=== PATIENT | male | born 1945 | race Caucasian/White ===

== ENCOUNTER 2019-09-13 13:00 | Outpatient (CLI) | payer MEDICARE, SELFPAY ==
--- NOTE | 2019-09-13 13:22 | CT_ITS ---
WS: [id number] CT ABDOMEN PELVIS TECHNIQUE: Contrast-enhanced CT of the abdomen and pelvis with coronal and sagittal reformatted image s. CLINICAL INFORMATION: COMPLEX RENAL CYST COMPARISON: Ultrasound renal 12 9,019 DLP: 1253.[address] scans at [facility] use at least one of these dose optimization techniques: automat ed exposure control; mA and/or kV adjustment per patient size (includes targeted exams where dose is matched to clinical indication); or iterative reconstruction. FINDINGS: Normal bilateral renal parenchymal enhancement. Left renal cyst is unchanged since the recent renal u ltrasound. No enhancing nodularity. Left upper pole renal cyst measures 3.3 x 3.1 CM. Exophytic lower pole right renal cyst measuring 2.1 x 2.0 cm. Smaller bilateral renal cysts. Bilateral renal cortica l atrophy. Mild diffuse fatty infiltration of the liver. Small right hepatic cyst measuring 6 mm. Lung bases are well aerated. Portal vein and splenic vein are patent. Normal gallbladder. Normal GE junction. Right Adrenal gland is normal. Small left adrenal adenoma measuring 11 mm. Vascular calcification. Normal caliber abdominal aorta. No periaortic lymphadenopathy. Left FADIA. No inguinal lymphadenopathy. CT/CT abdomen pelvis w con* [id number] IMPRESSION: 1. Unchanged upper pole left renal cyst measuring 3.1 x 3.3 cm. No abnormal en hancement. 2. Exophytic right lower pole renal cyst measuring 2.0 x 2.1 CM. 3. Smaller bilateral renal cysts with bilateral renal cortical atrophy. No hyd ronephrosis. 4. Small left adrenal adenoma measuring 11 mm. 5. Left FADIA.
[2019-09-13] MEDS: iohexol 300 mg/mL 100 mL Btl IV (14:05)
== END 2019-09-13 13:01 | disposition home or self-care (01) ==
LOC: RADWPI 13:11
PROVIDERS: Family Provider Nurse Practitioner; PCP Internal Medicine; Visit Provider Internal Medicine
DX: N28.1 Cyst of kidney, acquired (principal); N26.1 Atrophy of kidney (terminal); D35.02 Benign neoplasm of left adrenal gland; Z96.642 Presence of left artificial hip joint
CPT/HCPCS: 74177; Q9967

== ENCOUNTER → 2019-09-19 10:55 | Outpatient (BNVA) | payer MEDICARE, SELFPAY | PROVIDERS: Family Provider Internal Medicine; PCP Internal Medicine; Visit Provider Specialist | DX: Z48.89 Encounter for other specified surgical aftercare (principal); Z96.642 Presence of left artificial hip joint | CPT/HCPCS: 73502 ==

== ENCOUNTER → 2019-11-18 09:13 | Outpatient (BNVA) | payer MEDICARE, SELFPAY | PROVIDERS: Family Provider Nurse Practitioner; PCP Internal Medicine; Visit Provider Specialist | DX: Z48.89 Encounter for other specified surgical aftercare (principal); Z96.642 Presence of left artificial hip joint | CPT/HCPCS: 73502 ==

== ENCOUNTER → 2020-06-01 08:18 | Outpatient (BNVA) | payer MEDICARE, SELFPAY | PROVIDERS: Family Provider Nurse Practitioner; PCP Internal Medicine; Visit Provider Specialist | DX: Z98.890 Other specified postprocedural states (principal) | CPT/HCPCS: 73502 ==

== ENCOUNTER 2020-08-24 08:01 | Outpatient (CLI) | payer MEDICARE, SELFPAY ==
--- NOTE | 2020-08-24 08:55 | ECG_ITS ---
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 Measurements Intervals [place] Rate: 65 P: -26 ND: 184 QRS: -74 QRSD: 159 T: 2 QT: 427 QTc: 446 Interpretive Statements SINUS RHYTHM RIGHT BUNDLE BRANCH BLOCK [120+ ms QRS DURATION, UPRIGHT V1, 40+ ms S IN I/aVL/V4/V5/V6] LEFT ANTERIOR FASCICULAR BLOCK [QRS AXIS <= -45, QR IN I, RS IN II] Compared to ECG 07/26/2019 22:08:26 Left anterior fascicular block now present Right-axis deviation no longer present Electronically Signed On 08-24-2020 19:08:48 CLIENT SERVICES ASSISTANT by Mp Pickard M.D. [id number]
[2020-08-24 09:57] LABS: Basophils % 0.3 %; Eosinophils # 0.5 10^3/uL (0.0-0.8); Eosinophils % 5.1 %; Hematocrit 40.4 % (42.0-52.0); Hemoglobin 13.2 g/dL (11.7-16.6); Lymphocytes # 2.3 10^3/uL (0.8-4.8); Lymphocytes % 25.4 %; Mean Corpuscular HGB Conc 32.7 g/dL (30.0-36.0); Mean Corpuscular Hemoglobin 31.3 pg (28.0-34.0); Mean Corpuscular Volume 95.7 fL (80-94); Mean Platelet Volume 10.4 fL (7.4-10.4); Monocytes # 0.9 10^3/uL (0.2-0.9); Monocytes % 9.4 %; Neutrophils # 5.34 10^3/uL (1.8-7.7); Neutrophils % 59.5 %; Nucleated Red Blood Cells % 0 %; Platelet Count 172 10^3/cmm (130-400); Red Blood Count 4.22 10^6/uL (4.1-5.3); Red Cell Distribution Width 13.2 % (12.1-15.1)
[2020-08-24 10:11] LABS: Anion Gap 16.5 (5-19); Blood Urea Nitrogen 21 mg/dL (8-23); Calcium 8.6 mg/dL (8.5-10.5); Carbon Dioxide 29 mmol/L (22-29); Chloride 104 mmol/L (98-107); Glucose 82 mg/dL (65-115); Osmolality Calculated 304 mOsm/kg (285-295); Potassium 3.5 mmol/L (3.5-5.1); Sodium 146 mmol/L (136-145)
== END 2020-08-24 08:02 | disposition home or self-care (01) ==
PROVIDERS: PCP Internal Medicine; Visit Provider Specialist
DX: Z01.810 Encounter for preprocedural cardiovascular examination (principal)
CPT/HCPCS: 36415; 80048; 85025; 93005

== ENCOUNTER → 2021-01-01 08:41 | Outpatient (BNVA) | payer MEDICARE, SELFPAY | PROVIDERS: PCP Internal Medicine; Visit Provider Surgery | DX: Z20.822 Contact with and (suspected) exposure to COVID-19 (principal) | CPT/HCPCS: 87635 ==

== ENCOUNTER 2021-01-07 08:07 | Day surgery (SDC) | payer MEDICARE, SELFPAY ==
[2021-01-05 14:02] VITALS: BMI 30.5
--- NOTE | 2021-01-07 08:39 | PC.NURSE ---
\pt left dentures at home
[2021-01-07 08:46] VITALS: BP 137/76; PULSE 65; RESP 18; TEMP 36.3; O2SAT 98
[2021-01-07 08:51] LABS: Glucose Point of Care 111 mg/dL (70-110)
--- NOTE | 2021-01-07 08:51 | ANES.PREANE2 ---
Pre-Anesthetic Assessment Pre-Anesthetic Assessment: Height/Weight: Height 1.83 m Weight 102.058 kg Preop Diagnosis: screening colonoscopy Proposed Procedure: Operation Date: 01/07/21 09:30 Proposed Procedures p Colonoscopy 79197 k52.9(Not Applicable) - Michael Anne MD Familial anesthetic complications: none Was Beta Devika taken within 24 hours: Yes Was Clonidine taken within 24 hours: N/A Social: Social History: Alcohol (occasional times a week) and No tobacco Exam: Pre-Anes Outpt Exam: alert, oriented x 3, clear to auscultation bilaterally and regular rate & rhythm Airway: Submandibular: WNL Cervical ROM: WNL MP: 1 Dentition: Chipped, False and Full Pulmonary: Pulmonary: None reported CV/HEM: CV/HEM: HTN : : None reported Comments: history of frequent kidney stones Hepatic: Hepatic: None reported GI: GI: None reported Metabolic: Metabolic: DM (type II) and Hyperlipidemia Musc/skel: Musc/skel: None reported Neuropsych: Neuropsych: None reported Anesthetic Plan: ASA status: 2 PFSH Anesthesia PFSH: Medical History Accelerated essential hypertension Diabetes mellitus Gout Hyperlipidemia Nephrolithiasis Surgical History History of arthroscopy of left knee History of circumcision History of hemiarthroplasty of left hip Hx of tonsillectomy Family History Other Diabetes Heart disease Social History Smoking and tobacco status: never smoked Alcohol intake: current Alcohol intake frequency: holidays/special occasions only Current occupational status: retired Data Anesthesia Cardiac Studies: No Data to Display
[2021-01-07] MEDS: sodium chloride 0.9% 1,000 ML 30 ML IV (08:53)
--- NOTE | 2021-01-07 09:42 | P.HP_ITS ---
Same Day Surgery H&P Indication for Procedure/HPI DATE OF PROCEDURE: January 07, 2021 CHIEF COMPLAINT/INDICATIONFOR SURGICAL PROCEDURE: fobt, diarrhea PREOP DIAGNOSIS: screening colonoscopy PLANNED PROCEDRUE: Operation Date: 01/07/21 09:30 Proposed Procedures p Colonoscopy 50930 k52.9(Not Applicable) - Michael Anne MD Medications/Allergies* Home Medications Medication Instructions Recorded Confirmed Type amlodipine 5 mg tablet 5 mg PO QDAY 09/19/19 01/05/21 History aspirin 81 mg tablet,delayed 81 mg PO QDAY 09/19/19 01/07/21 History release atorvastatin 10 mg tablet 10 mg PO QDAY 09/19/19 01/07/21 History calcium carbonate 600 mg calcium 600 mg PO QDAY 09/19/19 01/05/21 History (1,500 mg) tablet citalopram 20 mg tablet 20 mg PO QDAY 09/19/19 01/05/21 History hydrochlorothiazide 25 mg tablet 25 mg PO QAM 09/19/19 01/05/21 History insulin glargine [Lantus Solostar 50 unit SUBCUT DAILY 09/19/19 01/07/21 History U-100 Insulin] insulin lispro [Humalog KwikPen 1 unit SUBCUT DAILY 09/19/19 01/05/21 History Insulin] losartan 25 mg tablet 25 mg PO QDAY 09/19/19 01/05/21 History multivitamin 1 tab PO QAM 09/19/19 01/05/21 History potassium gluconate 2.5 mEq tablet 2.5 meq PO QDAY 09/19/19 01/05/21 History metoprolol tartrate 75 mg tablet 50 mg PO BID tab 09/08/20 01/05/21 History tamsulosin 0.4 mg capsule 0.8 mg PO QDAY cap 09/08/20 01/05/21 History allopurinol 300 mg tablet 300 mg PO QDAY tab 12/07/20 01/07/21 History cholecalciferol (vitamin D3) 25 3,000 unit PO QDAY tab 12/07/20 01/05/21 History mcg (1,000 unit) tablet gabapentin 100 mg capsule 200 mg PO TID cap 12/07/20 01/05/21 History metformin 1,000 mg tablet 1,000 mg PO BID tab 12/07/20 01/05/21 History Allergies/Adverse Reactions Allergy/AdvReac Type Severity Reaction Status Date / Time lisinopril Allergy unknown Verified 12/07/20 13:25 naproxen AdvReac short term Verified 12/07/20 13:25 memory loss Current Medications: Generic Name Dose Route Start Last Admin Trade Name Stefanie PRN Reason Stop Dose Admin Sodium Chloride 1,000 mls @ 30 mls/hr 01/07/21 08:30 01/07/21 08:53 Sodium Chloride 0.9% IV 01/08/21 08:29 30 mls/hr .Q24H MARYANN Administration Pertinent History/Comorbid Conditions* Medical History (Updated 12/07/20 @ 13:38 by Michael Anne MD) Accelerated essential hypertension Diabetes mellitus Gout Hyperlipidemia Nephrolithiasis Surgical History (Updated 12/07/20 @ 13:37 by Michael Anne MD) History of arthroscopy of left knee History of circumcision History of hemiarthroplasty of left hip Hx of tonsillectomy Family History (Updated 09/19/19 @ 11:32 by Zahraa Rodríguez LPN) Diabetes Heart disease Social History Smoking and tobacco status: never smoked Alcohol intake: current Alcohol intake frequency: holidays/special occasions only Current occupational status: retired Pertinent Exam Findings alert, oriented x 3 and regular rate & rhythm Recommendations Surgery/Procedure today Coding Level of Care Code Acute Maintenance Mechanic for Modesta Zhou
[2021-01-07 10:34] VITALS: BP 121/73; PULSE 52; RESP 18; TEMP 36.8; O2SAT 95
--- NOTE | 2021-01-07 10:35 | ANE.PACU2 ---
Inpatient post-anesthesia follow up: Airway intact: Yes Vital signs: Temperature 97.3 F Pulse Rate 65 Respiratory Rate 18 Blood Pressure 137/76 Pulse Oximetry 98 Oxygen Delivery Me thod Room Air Oxygen Flow Rate Fraction of Inspir ed Oxygen Hydration adequate: Yes Nausea and vomiting: No Pain level: 1 Mental status: Baseline
[2021-01-07 10:40] VITALS: BP 123/64; PULSE 54; RESP 18; O2SAT 95
== END 2021-01-07 10:55 | disposition home or self-care (01) ==
PROVIDERS: PCP Internal Medicine; Visit Provider Surgery
PROC: 0DJD8ZZ Inspection of Lower Intestinal Tract, Via Natural or Artificial Opening Endoscopic (ICD-10-PCS; CPT 45378; principal; 2021-01-07 09:30)
DX: R19.7 Diarrhea, unspecified (principal); I10 Essential (primary) hypertension; E11.9 Type 2 diabetes mellitus without complications; Z79.84 Long term (current) use of oral hypoglycemic drugs; E78.5 Hyperlipidemia, unspecified; D12.0 Benign neoplasm of cecum; D12.4 Benign neoplasm of descending colon; D12.3 Benign neoplasm of transverse colon; D12.8 Benign neoplasm of rectum
CPT/HCPCS: 36416; 45385; 82274; 82962; 83630; 87493; 87506; 88305; 96360; 96361; J2704; J7030

== ENCOUNTER → 2021-11-22 12:22 | Outpatient (BNVA) | payer MEDICARE, SELFPAY | PROVIDERS: PCP Internal Medicine; Visit Provider Internal Medicine Cardiovascular Disease | DX: I45.2 Bifascicular block (principal); I10 Essential (primary) hypertension; E11.9 Type 2 diabetes mellitus without complications | CPT/HCPCS: 99212 ==

== ENCOUNTER → 2022-03-08 07:58 | Outpatient (BNVA) | payer MEDICARE, SELFPAY | PROVIDERS: PCP Internal Medicine; Visit Provider Podiatrist Foot & Ankle Surgery | DX: E11.8 Type 2 diabetes mellitus with unspecified complications (principal); M21.41 Flat foot [pes planus] (acquired), right foot; M21.42 Flat foot [pes planus] (acquired), left foot; M21.6X1 Other acquired deformities of right foot; M21.6X2 Other acquired deformities of left foot; E11.42 Type 2 diabetes mellitus with diabetic polyneuropathy; I73.9 Peripheral vascular disease, unspecified; L84 Corns and callosities; L60.2 Onychogryphosis | CPT/HCPCS: 11055; 11721 ==

== ENCOUNTER 2022-05-31 10:43 | Outpatient (CLI) | payer MEDICARE, SELFPAY ==
--- NOTE | 2022-05-31 13:18 | XRR_ITS ---
PROCEDURE INFORMATION: Exam: XR Chest Exam date and time: 05/31/2022 1:19 PM Age: 76 years old Clinical indication: Shortness of breath; Prior surgery; Surgery type: Lt hip TECHNIQUE: Imaging protocol: Radiologic exam of the chest. Views: 2 views. COMPARISON: CR XR chest 1V [id number] 07/28/2019 12:59 AM FINDINGS: Lungs: No pneumonia or pulmonary edema. Pleural spaces: No pleural effusion or pneumothorax. Heart/Mediastinum: The cardiac silhouette is not enlarged. The mediastinal contours are normal. Bones/joints: There are multilevel bridging osteophytes in the spine. XR/XR chest 2V* [id number] IMPRESSION: No acute finding.
--- NOTE | 2022-05-31 14:00 | PFTS_ITS ---
Date of Study:06/01/22 Date of Dictation: MECHANICS: Forced vital capacity (FVC) is reduced. Forced expiratory volume in one second (FEV1) is normal. FEV1/FVC is normal. FLOW VOLUME LOOP: Normal. INTERPRETATION: The postbronchodilator spirometry is consistent with mild restriction. No significant postbronchodilator response. MTDD
--- NOTE | 2022-05-31 14:33 | PFTS_ITS ---
Date of Study:05/31/22 Date of Dictation: MECHANICS: Forced vital capacity (FVC) is . Forced expiratory volume in one second (FEV1) is . FEV1/FVC is . FLOW VOLUME LOOP: . LUNG VOLUMES: Total lung capacity (TLC) is . Residual volume (RV) is . DIFFUSING CAPACITY FOR CARBON MONOXIDE: . INTERPRETATION: The pulmonary function tests are . mechanics and lung volumes. Gas exchange (DLCO) is . MTDD
== END 2022-05-31 10:44 | disposition home or self-care (01) ==
PROVIDERS: PCP Internal Medicine; Visit Provider Internal Medicine
DX: R06.02 Shortness of breath (principal)
CPT/HCPCS: 71046; 94060; J7611

== ENCOUNTER → 2022-06-07 07:59 | Outpatient (BNVA) | payer MEDICARE, SELFPAY | PROVIDERS: PCP Internal Medicine; Visit Provider Podiatrist Foot & Ankle Surgery | DX: E11.8 Type 2 diabetes mellitus with unspecified complications (principal); M21.41 Flat foot [pes planus] (acquired), right foot; M21.42 Flat foot [pes planus] (acquired), left foot; M21.6X1 Other acquired deformities of right foot; E11.42 Type 2 diabetes mellitus with diabetic polyneuropathy; M21.6X2 Other acquired deformities of left foot; I73.9 Peripheral vascular disease, unspecified; L84 Corns and callosities; E11.621 Type 2 diabetes mellitus with foot ulcer; E11.622 Type 2 diabetes mellitus with other skin ulcer; Z79.4 Long term (current) use of insulin; Z79.84 Long term (current) use of oral hypoglycemic drugs; L97.511 Non-pressure chronic ulcer of other part of right foot limited to breakdown of skin; L97.321 Non-pressure chronic ulcer of left ankle limited to breakdown of skin | CPT/HCPCS: 11055; 11721; 99213 ==

== ENCOUNTER → 2022-06-09 13:16 | Outpatient (BNVA) | payer MEDICARE, SELFPAY | PROVIDERS: PCP Internal Medicine; Visit Provider Urology | DX: N40.0 Benign prostatic hyperplasia without lower urinary tract symptoms (principal); R97.20 Elevated prostate specific antigen [PSA] | CPT/HCPCS: 36415; 51798; 84153; 99203 ==

== ENCOUNTER → 2022-09-29 07:58 | Outpatient (BNVA) | payer MEDICARE, SELFPAY | PROVIDERS: PCP Internal Medicine; Visit Provider Podiatrist Foot & Ankle Surgery | DX: E11.8 Type 2 diabetes mellitus with unspecified complications (principal); M21.41 Flat foot [pes planus] (acquired), right foot; M21.42 Flat foot [pes planus] (acquired), left foot; M21.6X1 Other acquired deformities of right foot; M21.6X2 Other acquired deformities of left foot; E11.42 Type 2 diabetes mellitus with diabetic polyneuropathy; I73.9 Peripheral vascular disease, unspecified; L84 Corns and callosities; Z79.84 Long term (current) use of oral hypoglycemic drugs; Z79.4 Long term (current) use of insulin; L60.2 Onychogryphosis | CPT/HCPCS: 11055; 11721 ==

== ENCOUNTER → 2022-11-21 12:05 | Outpatient (BNVA) | payer MEDICARE, SELFPAY | PROVIDERS: PCP Internal Medicine; Visit Provider Internal Medicine | DX: I10 Essential (primary) hypertension (principal); E11.9 Type 2 diabetes mellitus without complications; I45.2 Bifascicular block; Z79.84 Long term (current) use of oral hypoglycemic drugs; Z79.4 Long term (current) use of insulin | CPT/HCPCS: 99214 ==

== ENCOUNTER → 2022-12-13 07:57 | Outpatient (BNVA) | payer MEDICARE, SELFPAY | PROVIDERS: PCP Internal Medicine; Visit Provider Urology | DX: N40.0 Benign prostatic hyperplasia without lower urinary tract symptoms (principal) | CPT/HCPCS: 51741; 51798; 52000; 81003; 99213 ==

== ENCOUNTER 2022-12-15 08:31 | Outpatient (CLI) | payer MEDICARE, SELFPAY ==
--- NOTE | 2022-12-15 09:30 | USCV_ITS ---
Dk Steven Age: 77 Gender: M : 1945 Exam Date: 12/15/2022 09:11 Ordering Phys: Mp Pickard M.D ([email or web address]) Technologist: Fabrizio Pennington Exam Location: [facility] – [place] Indication: shortness of breath BP: 131 / 65 HR: 50 Rhythm: Sinus Technical Quality: Adequate MEASUREMENTS (Male / Female) Normal Values 2D ECHO LVOT Diameter 2.0 cm LV Ejection Fraction MOD 2C 49.2 % LV Ejection Fraction 2C AL 52.2 % LA Diameter 3.5 cm LA Width 3.6 cm LA Height 3.2 cm RA Width 3.0 cm RA Height 3.5 cm Aorta at Sinotubular Diameter 2.4 cm IVC Diameter 2.0 cm M-MODE Aortic Annulus Diameter 3.2 cm LA Ao Ratio MM 1.2 MV E Point Septal Separation 0.6 cm DOPPLER AV Peak Velocity 132.3 cm/s LVOT Peak Velocity 75.0 cm/s AV Area Cont Eq vti 1.5 cm squared AV Area Cont Eq pk 1.8 cm squared MV Peak Velocity 90.0 cm/s MV Area PHT 3.4 cm squared Mitral E to A Ratio 0.7 MV E' Velocity 28.5 cm/s Mitral E to MV E' Ratio 7.1 Mitral E to LV E' Lateral Ratio 5.9 Mitral E to LV E' Septal Ratio 9.0 TR Peak Velocity 285.8 cm/s TR Peak Gradient 32.7 mmHg TR Mean Velocity 225.7 cm/s TR Mean Gradient 23.6 mmHg TR Velocity Time Integral 91.4 cm Right Atrial Pressure 3.0 mmHg Pulmonary Artery Systolic Pressu 35.7 mmHg PV Peak Velocity 82.7 cm/s RV Acceleration Time 0.2 s RV Ejection Time 0.4 s RV AcT/ET 0.4 FINDINGS Left Ventricle Left ventricle is normal in size. LV systolic function is normal with EF of 50 to 55%. No regional wall motion abnormalities are seen. Grade 1 diastolic dysfunction Right Ventricle The right ventricle is normal in size and function. Right Atrium The right atrium is normal in size. Left Atrium The left atrium is normal in size. Mitral Valve Structurally normal mitral valve. There is mild mitral regurgitation. Aortic Valve Aortic valve is thickened. No significant stenosis. Trace aortic regurgitation. Tricuspid Valve Mild tricuspid regurgitation. Pulmonary artery systolic pressure is normal. Pulmonic Valve Not well-visualized. Mild pulmonic regurgitation. Pericardium Normal pericardium without effusion. Aorta Normal ascending aorta dimension. IVC The inferior vena cava appears normal. CONCLUSIONS LV systolic function is normal with EF 50 to 55%. Grade 1 diastolic dysfunction Mild mitral regurgitation Trace aortic regurgitation Mild tricuspid regurgitation Mild pulmonic regurgitation. No comparison studies are available Mp Pickard MD (Electronically Signed) Final Date: 15 December 2022 11:45 S
== END 2022-12-15 08:32 | disposition home or self-care (01) ==
LOC: RAD 08:33
PROVIDERS: PCP Internal Medicine; Visit Provider Internal Medicine
DX: R06.02 Shortness of breath (principal); I34.0 Nonrheumatic mitral (valve) insufficiency; I07.1 Rheumatic tricuspid insufficiency; I37.1 Nonrheumatic pulmonary valve insufficiency
CPT/HCPCS: 11055; 11721; 93306

== ENCOUNTER → 2023-02-15 10:09 | Outpatient (BNVA) | payer MEDICARE, SELFPAY | PROVIDERS: PCP Internal Medicine; Visit Provider Podiatrist Foot & Ankle Surgery | DX: I73.9 Peripheral vascular disease, unspecified (principal); L60.3 Nail dystrophy; L84 Corns and callosities; M72.2 Plantar fascial fibromatosis; E11.8 Type 2 diabetes mellitus with unspecified complications; M21.41 Flat foot [pes planus] (acquired), right foot; M21.42 Flat foot [pes planus] (acquired), left foot; M21.6X1 Other acquired deformities of right foot; M21.6X2 Other acquired deformities of left foot; E11.42 Type 2 diabetes mellitus with diabetic polyneuropathy; Z79.4 Long term (current) use of insulin; Z79.84 Long term (current) use of oral hypoglycemic drugs | CPT/HCPCS: 11055; 11721; 73630; 99214 ==

== ENCOUNTER 2023-02-20 06:00 | Outpatient (RCR) | payer MEDICARE, SELFPAY | END 2023-03-20 23:59 | disposition home or self-care (01) | LOC: APT 06:00 | PROVIDERS: Visit Provider Podiatrist Foot & Ankle Surgery | DX: M72.2 Plantar fascial fibromatosis (principal) | CPT/HCPCS: 97035; 97110; 97140; 97162; 97530 ==

== ENCOUNTER → 2023-03-16 08:40 | Outpatient (BNVA) | payer MEDICARE, SELFPAY | PROVIDERS: PCP Internal Medicine; Referring Provider Internal Medicine; Visit Provider Nurse Practitioner Family | DX: L57.0 Actinic keratosis (principal); L82.1 Other seborrheic keratosis; L82.0 Inflamed seborrheic keratosis; L81.4 Other melanin hyperpigmentation; L57.8 Other skin changes due to chronic exposure to nonionizing radiation; Z85.820 Personal history of malignant melanoma of skin; Z85.828 Personal history of other malignant neoplasm of skin | CPT/HCPCS: 17000; 17110; 99203 ==

== ENCOUNTER 2023-03-21 06:00 | Outpatient (RCR) | payer MEDICARE, SELFPAY | END 2023-04-20 23:59 | disposition home or self-care (01) | LOC: APT 06:00 | PROVIDERS: PCP Internal Medicine; Visit Provider Podiatrist Foot & Ankle Surgery | DX: M72.2 Plantar fascial fibromatosis (principal) | CPT/HCPCS: 97110; 97140; 97530 ==

== ENCOUNTER 2023-04-19 15:19 | Outpatient (CLI) | payer MEDICARE, SELFPAY | END 2023-04-19 15:20 | disposition home or self-care (01) | LOC: SPT 15:20 | PROVIDERS: PCP Internal Medicine; Visit Provider Podiatrist Foot & Ankle Surgery | DX: Z46.89 Encounter for fitting and adjustment of other specified devices (principal); M72.2 Plantar fascial fibromatosis; E11.42 Type 2 diabetes mellitus with diabetic polyneuropathy; L84 Corns and callosities; I73.9 Peripheral vascular disease, unspecified; L60.3 Nail dystrophy; Q66.71 Congenital pes cavus, right foot; Q66.72 Congenital pes cavus, left foot; M76.61 Achilles tendinitis, right leg; Z79.84 Long term (current) use of oral hypoglycemic drugs; Z79.4 Long term (current) use of insulin | CPT/HCPCS: 11055; 11721; 97760; 99214; L4397 ==

== ENCOUNTER → 2023-06-21 09:15 | Outpatient (BNVA) | payer MEDICARE, SELFPAY | PROVIDERS: PCP Internal Medicine; Visit Provider Podiatrist Foot & Ankle Surgery | DX: M76.61 Achilles tendinitis, right leg (principal); E11.42 Type 2 diabetes mellitus with diabetic polyneuropathy; I73.9 Peripheral vascular disease, unspecified; L84 Corns and callosities; L60.3 Nail dystrophy; Z79.84 Long term (current) use of oral hypoglycemic drugs; Z79.4 Long term (current) use of insulin | CPT/HCPCS: 11055; 11721; 99213 ==

== ENCOUNTER 2023-07-03 11:37 | Emergency (ER) | payer MEDICARE, SELFPAY ==
[2023-07-03] VITALS (34 sets, daily range): BP systolic 98–144; BP diastolic 49–76; PULSE 55–73; RESP 11–25; TEMP 36.5; O2SAT 93–97; BMI 29.8
--- NOTE | 2023-07-03 11:42 | ECG_ITS ---
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 Measurements Intervals [place] Rate: 53 P: 53 PA: 188 QRS: 270 QRSD: 173 T: 46 QT: 489 QTc: 461 Interpretive Statements SINUS BRADYCARDIA RIGHT AXIS DEVIATION [QRS AXIS > 100] RIGHT BUNDLE BRANCH BLOCK [120+ ms QRS DURATION, UPRIGHT V1, 40+ ms S IN I/aVL/V4/V5/V6] Compared to ECG 08/24/2020 08:32:43 Right-axis deviation now present Sinus rhythm no longer present Left anterior fascicular block no longer present Electronically Signed On 07-03-2023 18:32:50 HEALTH INFORMATION SYSTEMS TECHNICIAN by Tamela Cancino M.D. [id number]
--- NOTE | 2023-07-03 11:45 | W.ED.SYNCOPE ---
HPI - Syncope General: Chief Complaint: Syncope Stated Complaint: Syncope Time Seen by Provider: 07/03/23 11:39 Source: patient Mode of arrival: EMS Limitations: no limitations History of Present Illness: Patient is a very nice 77-year-old male who presents to ED today for evaluation following a syncopal episode. Patient states he had just received eye injections by Dr. Diaz and states he was standing at the counter waiting on his next appointment to be scheduled when the next thing I knew I was being woken up on the floor . Patient states he does not recall if he ever became dizzy or lightheaded or had chest pain, shortness of breath, difficulty breathing, or palpitations. He denies any injuries when he fell stating nothing currently is hurting him at the moment. Patient upon arrival to the emergency department states he feels back to baseline. Looks like EMS did some orthostatics in route that were positive. Patient states sometimes he will get dizzy with positional changes. MD complaint: loss of consciousness Onset (ago): hour(s) -: minutes(s) Prodromal symptoms: other (unrecalled by patient) Witnessed: Yes - by Bystander Injuries sustained associated with event: none Associated symptoms: Deny abdominal pain, chest pain, fever(s), headache(s), lightheadedness, nausea or vertigo Treatments prior to arrival: IV fluids Review of Systems Const: Denies: fever(s) or chills Eyes: Denies: change in vision or blurry vision Card: Reports: syncope; Denies: chest pain, palpitations, irregular heart rhythm, edema, swelling of feet/ankles, lightheadedness, pre-syncope, dyspnea on exertion, orthopnea, leg pain with exertion or acrocyanosis Resp: Denies: dyspnea, productive cough, pain on inspiration, hemoptysis or chest congestion GI: Denies: abdominal pain, nausea, vomiting, heartburn or diarrhea : Denies: flank pain, difficulty urinating or dysuria Musc: Denies: neck pain, back pain, extremity pain, extremity swelling or joint pain Skin/Breast: Denies: rash Neuro: Denies: headache(s), numbness in extremities, weakness in extremities, sensory changes, lack of coordination, difficulty walking, frequent falls, dizziness, vertigo, confusion, behavioral changes, Slurred speech present, difficulty communicating thoughts or seizure-like activity PFSH ED PFSH: Medical History Accelerated essential hypertension Diabetes mellitus Gout Hyperlipidemia Nephrolithiasis Surgical History History of arthroscopy of left knee History of circumcision History of hemiarthroplasty of left hip Hx of tonsillectomy Status post colonoscopy (01/07/21) Cecal, transverse colon, descending colon , rectal polyp Family History Father , AT AGE 54 Renal failure Mother , AT AGE 92 Dementia Alzheimer disease Other Diabetes Heart disease Social History Smoking and tobacco/nicotine status: never used tobacco/nicotine Alcohol intake: current Alcohol intake frequency: holidays/special occasions only Alcohol type: beer and wine Substance/Drug Use: never Marital status: Current occupational status: retired Physical Exam Const: COMMON NORMALS: no acute distress, patient oriented x3, no limitations, healthy appearing, alert and well nourished GENERAL APPEARANCE: cooperative ORIENTATION/CONSCIOUSNESS: Yes awake, Yes oriented to person, Yes oriented to place and Yes oriented to time HENMT: COMMON NORMALS: normocephalic and atraumatic HEAD & SCALP: normal to inspection, normocephalic and atraumatic FACE & SINUS: normal facial exam Eye: COMMON NORMALS: Equal, round and reactive pupils present and EOMs intact bilaterally GENERAL EYE: appearance normal, both eyes and all related structures and normal light reflex PUPIL: Yes Equal, round and reactive pupils present DIRECT OPHTHALMOSCOPY: Yes normal light reflex Neck/C-Spine: COMMON NORMALS: full ROM, no lymphadenopathy, supple, no meningeal signs, no JVD and No carotid bruits GENERAL: Yes normal visual inspection CERVICAL SPINE: Yes cervical ROM normal, No Cervical spine tenderness and No step off deformity Chest: COMMONS NORMALS: normal inspection of the chest Resp: COMMON NORMALS: normal respiratory effort and clear to auscultation bilaterally AUSCULTATION: clear to auscultation bilaterally Cardio: COMMON NORMALS: no JVD, regular rate and regular rhythm RATE: regular rate RHYTHM: regular rhythm GI: COMMON NORMALS: Normal to inspection, nondistended, normoactive bowel sounds present, Soft to palpation, non-tender, No hepatosplenomegaly present and no masses PALPATION: Yes Soft to palpation and Yes No hepatosplenomegaly present : COMMON NORMALS: Yes no CVA tenderness BLADDER/KIDNEY EXAM: Yes no CVA tenderness Back/Pelvis: COMMON NORMALS: no CVA tenderness, thoracic and lumbar spine normal to inspection, no thoracic nor lumbar tenderness and thoraco-lumbar ROM normal Extremity: COMMON NORMALS: normal to inspection and full ROM GENERAL: Yes normal exam except as noted Neuro: OANH COMA SCALE: document GCS findings Oanh coma scale eye opening: Spontaneous Oanh coma scale verbal response: Orientated [place] coma scale motor response: Obey commands [place] coma scale total score: 15 COMMON NORMALS: patient oriented x3, CN's II-XII intact bilaterally, moves all extremities, no focal motor deficits, no sensory deficits noted and gait normal SENSORIUM/ORIENTATION: Yes alert, Yes oriented to person, Yes oriented to place and Yes oriented to time MENINGEAL SIGNS: Yes no meningeal signs SPEECH: speech normal GAIT: Yes Normal gait present MOTOR EXAM: 5/5 motor strength present throughout Skin: COMMON NORMALS: no rashes or lesions noted GENERAL SKIN EXAM: no rashes or lesions noted Course Vital Signs: Vital signs: Vital Signs Temperature 97.7 F 07/03/23 11:38 Pulse Rate 58 L 07/03/23 14:45 Respiratory Rate 18 07/03/23 14:45 Blood Pressure 121/58 07/03/23 14:45 Pulse Oximetry 94 07/03/23 14:45 Oxygen Delivery Me thod Room Air 07/03/23 14:20 MDM - Syncope Medical Decision Making Patient is a nice 77-year-old male here following a syncopal episode. Etiology at this time most likely either related to a vasovagal episode possibly following injections to the eye or orthostatic hypotension. Possibly dehydration. His vitals here have been stable. Orthostatic blood pressures here were positive upon standing. This is probably more age related as he has mentioned he often gets dizzy with positional changes. Blood work showing mild hypokalemia-he was given oral supplements for this. BUN/Cr slightly elevated. He was given fluids here. Baseline trop of 23 with a negative delta. Baseline and repeat EKGs with no abnormal arrhythmias or ischemia. CXR normal. He has no chest pain/SOB. UA attempted to be collected multiple times but was not able to get sample. Patient will be allowed discharge with return precautions. Otherwise I would like him to follow up with his primary care provider this week. Differential Diagnosis Likely syncope due to orthostatic hypotension, vasovagal syncope and dehydration Lab Data 07/03/23 11:20 07/03/23 11:20 Laboratory Results WBC 12.74 10^3/uL (3.29-11.43) H 07/03/23 11:20 RBC 4.37 10^6/uL (3.85-5.65) 07/03/23 11:20 Hgb 13.80 g/dL (11.27-16.99) 07/03/23 11:20 Hct 41.3 % (37-53) 07/03/23 11:20 MCV 94.5 fl (82-101) 07/03/23 11:20 MCH 31.6 pg (27-33) 07/03/23 11:20 MCHC 33.4 g/dL (30-55) 07/03/23 11:20 RDW 13.2 % (12.1-15.1) 07/03/23 11:20 Plt Count 193 10^3/cmm (157-399) 07/03/23 11:20 MPV 11.2 fL (7.4-10.4) H 07/03/23 11:20 Neut % (Auto) 63.8 % 07/03/23 11:20 Lymph % (Auto) 23.6 % 07/03/23 11:20 Parmer % (Auto) 9.4 % 07/03/23 11:20 Eos % (Auto) 2.0 % 07/03/23 11:20 Baso % (Auto) 0.2 % 07/03/23 11:20 Neut # (Auto) 8.12 10^3/uL (1.8-7.7) H 07/03/23 11:20 Lymph # (Auto) 3.0 10^3/uL (0.8-4.8) 07/03/23 11:20 Parmer # (Auto) 1.2 10^3/uL (0.2-0.9) H 07/03/23 11:20 Eos # (Auto) 0.3 10^3/uL (0.0-0.8) 07/03/23 11:20 Baso # (Auto) 0.0 10^3/uL (0.0-0.1) 07/03/23 11:20 Nucleated RBC % (auto) 0 % 07/03/23 11:20 Nucleated RBCs # 0.0 /100WBC 07/03/23 11:20 Sodium 138 mmol/L (136-145) 07/03/23 11:20 Potassium 3.3 mmol/L (3.5-5.1) L 07/03/23 11:20 Chloride 100 mmol/L (98-107) 07/03/23 11:20 Carbon Dioxide 28 mmol/L (22-29) 07/03/23 11:20 Anion Gap 13.3 (5-19) 07/03/23 11:20 BUN 38 mg/dL (8-23) H 07/03/23 11:20 Creatinine 1.4 mg/dL (0.7-1.2) H 07/03/23 11:20 GFR Calculation Not Reportable 07/03/23 11:20 Glucose 160 mg/dL (65-115) H 07/03/23 11:20 Calculated Osmolality 298 mOsm/kg (285-295) H 07/03/23 11:20 Calcium 8.4 mg/dL (8.5-10.5) L 07/03/23 11:20 Total Bilirubin 0.3 mg/dL (0.15-1.2) 07/03/23 11:20 AST 21 U/L (0-40) 07/03/23 11:20 ALT 23 U/L (0-41) 07/03/23 11:20 Alkaline Phosphatase 72 U/L (40-130) 07/03/23 11:20 Troponin T Baseline 23 ng/L (0-15) H 07/03/23 11:20 Troponin T 120 Minute 22.70 ng/L (0-15) H 07/03/23 13:15 Delta Troponin T -0.30 ABS# (0-10) L 07/03/23 13:15 Total Protein 6.1 g/dL (6.6-8.7) L 07/03/23 11:20 Albumin 3.7 g/dL (3.5-5.2) 07/03/23 11:20 Globulin 2.4 g/dL (1.3-4.6) 07/03/23 11:20 All radiology interpretation(s) finalized by discharge Discharge Plan Discharge Patient Disposition: Home Clinical Impression: Syncope Qualifiers: Syncope type: unspecified Qualified Code(s): R55 - Syncope and collapse Condition: Stable Prescriptions: No Action atorvastatin 40 mg tablet 40 mg PO DAILY metformin 500 mg tablet extended release 24 hr 500 mg PO BID insulin lispro [Humalog U-100 Insulin] 100 unit/mL solution 1 - 15 unit SUBCUT BID Rx Instructions: Sliding scale potassium gluconate 2.5 mEq tablet 2.5 meq PO QDAY citalopram 20 mg tablet 20 mg PO QDAY amlodipine 5 mg tablet 5 mg PO QDAY hydrochlorothiazide 25 mg tablet 25 mg PO QAM aspirin [Adult Low Dose Aspirin] 81 mg tablet,delayed release (DR/EC) 81 mg PO QAM calcium carbonate 600 mg calcium (1,500 mg) tablet 600 mg PO QDAY multivitamin Tablet 1 tab PO QAM tamsulosin 0.4 mg capsule 0.8 mg PO QDAY allopurinol 300 mg tablet 300 mg PO QAM gabapentin 100 mg capsule 200 mg PO TID cholecalciferol (vitamin D3) [Vitamin D3] 25 mcg (1,000 unit) tablet 3,000 unit PO QDAY finasteride 5 mg tablet 5 mg PO QDAY Qty: 90 3RF (DME) physical therapy See Rx Instructions .Route .MEDSUPPLY Qty: 1 0RF Rx Instructions: Please schedule for Eval and Treat. Patient prefers the [place] location. (DME) Diabetic Shoes with 3 Accomodative Inserts See Rx Instructions .Route .MEDSUPPLY Qty: 1 0RF Rx Instructions: As directed (DME) Night Splint to the right See Rx Instructions .Route .MEDSUPPLY Qty: 1 0RF Rx Instructions: As directed cyclobenzaprine 10 mg tablet 10 mg PO BID PRN (Reason: muscle spasm) Qty: 14 0RF prednisone 20 mg tablet 20 mg PO BID Qty: 10 0RF losartan 50 mg tablet 50 mg PO DAILY metoprolol tartrate 50 mg tablet 50 mg PO BID Lantus Solostar U-100 Insulin 100 unit/mL (3 mL) Insulin Pen 55 unit SUBCUT DAILY Discharge Orders: Discharge ED (Routine); Ordered 07/03/23 Ordered By: Tana Saxena Referrals: Mili Soliman MD [Primary Care Provider] - Patient Instructions: Syncope (DC), Syncope in Older Adults (ED) Activity Restrictions/Additional Instructions: As we discussed I would like you to follow-up with your primary care provider later this week for re-evaluation. You need to return to the emergency department for any further episodes of syncope, lightheadedness, dizziness, chest pain, shortness of breath, difficulty breathing, palpitations, severe headache, or any other concerns you may have. As we discussed the etiology for your syncopal episode could be related to your blood pressure. Please start doing the rule of fives when it comes to positional changes such as going from a lying to seated or seated to standing position (i.e wait 5 mins when changing positions to allow blood pressure to equalize and keep you from getting dizzy). Coding Level of Care Code ED Flatwork Folder for Modesta Zhou
--- NOTE | 2023-07-03 11:52 | XR_ITS ---
WS: [id number] Exam: XR chest 1V portable [id number] Date/Time of Exam: 07/03/2023 12:01 PM Reason For Exam: syncope Comparison 05/31/2022. The lungs are clear. Normal cardiomediastinal silhouette. No pleural effusions. Bony structures are i ntact. IMPRESSION: 1. Negative chest. No change.
[2023-07-03 12:13] LABS: Basophils % 0.2 %; Eosinophils # 0.3 10^3/uL (0.0-0.8); Hematocrit 41.3 % (37-53); Lymphocytes % 23.6 %; Mean Corpuscular HGB Conc 33.4 g/dL (30-55); Mean Corpuscular Hemoglobin 31.6 pg (27-33); Mean Corpuscular Volume 94.5 fl (82-101); Mean Platelet Volume 11.2 fL (7.4-10.4); Monocytes # 1.2 10^3/uL (0.2-0.9); Monocytes % 9.4 %; Neutrophils # 8.12 10^3/uL (1.8-7.7); Neutrophils % 63.8 %; Nucleated Red Blood Cells % 0 %; Platelet Count 193 10^3/cmm (157-399); Red Blood Count 4.37 10^6/uL (3.85-5.65); Red Cell Distribution Width 13.2 % (12.1-15.1); White Blood Count 12.74 10^3/uL (3.29-11.43)
[2023-07-03 12:35] LABS: Troponin(5th) Baseline 23 ng/L (0-15)
[2023-07-03 12:37] LABS: Alanine Aminotransferase 23 U/L (0-41); Albumin Level 3.7 g/dL (3.5-5.2); Alkaline Phosphatase 72 U/L (40-130); Blood Urea Nitrogen 38 mg/dL (8-23); Calcium 8.4 mg/dL (8.5-10.5); Carbon Dioxide 28 mmol/L (22-29); Chloride 100 mmol/L (98-107); Globulin 2.4 g/dL (1.3-4.6); Glucose 160 mg/dL (65-115); Osmolality Calculated 298 mOsm/kg (285-295); Sodium 138 mmol/L (136-145); Total Bilirubin 0.3 mg/dL (0.15-1.2); Total Protein 6.1 g/dL (6.6-8.7)
[2023-07-03 12:43] LABS: Anion Gap 13.3 (5-19); Aspartate Amino Transferase 21 U/L (0-40); Potassium 3.3 mmol/L (3.5-5.1)
--- NOTE | 2023-07-03 13:52 | ECG_ITS ---
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 Measurements Intervals [place] Rate: 63 P: 52 [place]: 188 QRS: 265 QRSD: 167 T: 30 QT: 463 QTc: 474 Interpretive Statements SINUS RHYTHM RIGHT AXIS DEVIATION [QRS AXIS > 100] RIGHT BUNDLE BRANCH BLOCK [120+ ms QRS DURATION, UPRIGHT V1, 40+ ms S IN I/aVL/V4/V5/V6] Compared to ECG 07/03/2023 11:42:56 Sinus bradycardia no longer present Electronically Signed On 07-04-2023 1:52:12 CRATE BUILDER by Tamela Cancino M.D. [id number]
[2023-07-03] MEDS: potassium chloride ER 20 mEq Tablet 40 MEQ PO (13:56)
[2023-07-03] MEDS: sodium chloride 0.9% 1,000 ML 999 ML IV (13:57)
== END 2023-07-03 14:51 | disposition home or self-care (01) ==
PROVIDERS: Emergency Provider Physician Assistant; PCP Internal Medicine
DX: R55 Syncope and collapse (principal); Z79.4 Long term (current) use of insulin; Z79.84 Long term (current) use of oral hypoglycemic drugs; Z79.82 Long term (current) use of aspirin; E11.9 Type 2 diabetes mellitus without complications; E78.5 Hyperlipidemia, unspecified; I10 Essential (primary) hypertension
CPT/HCPCS: 36415; 71045; 80053; 84484; 85025; 93005; 96360; 99285; J7030

== ENCOUNTER 2023-07-19 08:28 | Outpatient (CLI) | payer MEDICARE, SELFPAY ==
--- NOTE | 2023-07-19 08:45 | MR_ITS ---
WS: [id number] MRI RIGHT ANKLE WITHOUT CONTRAST. COMPARISON: Radiographs RIGHT foot 02/15/2023 Multiplanar, multisequence imaging is performed without contrast. There is a moderate amount of edema throughout the pre-Achilles fat pad. There is a small amount of f luid in the posterior recess of the ankle joint. There is a mild prominent calcaneal tuberosity consi stent with Stella's deformity. The Achilles tendon appears normal. On a prior radiograph there is en thesopathy at the Achilles tendon. There may be slight increased T2 signal in the distal Achilles ins ertion site. There is no retrocalcaneal bursal fluid. There is no full-thickness tear. There is a small amount of fluid extending along the muscle of the flexor hallucis longus but not inv olving the tendon. No marrow edema in the calcaneus. No evidence for plantar fasciitis. IMPRESSION: 1. No Achilles tendon tear or significant tendinopathy. There is a very tiny amount of central increa sed T2 signal at the insertion site of the Achilles tendon. 2. Moderate edema pre-Achilles fat pad and pre-Achilles bursitis. 3. Mild Stella syndrome, very slight prominence of the calcaneal tuberosity.
== END 2023-07-19 08:29 | disposition home or self-care (01) ==
LOC: RAD 08:28
PROVIDERS: PCP Internal Medicine; Visit Provider Podiatrist Foot & Ankle Surgery
DX: M72.2 Plantar fascial fibromatosis (principal); M76.61 Achilles tendinitis, right leg; Q66.71 Congenital pes cavus, right foot; Q66.72 Congenital pes cavus, left foot; R60.0 Localized edema; M21.6X1 Other acquired deformities of right foot
CPT/HCPCS: 73721

== ENCOUNTER 2023-07-31 09:12 | Outpatient (CLI) | payer MEDICARE, SELFPAY ==
--- NOTE | 2023-07-31 09:21 | XR_ITS ---
WS: [id number] Exam: XR knee RT 4V [id number] Date/Time of Exam: 07/31/2023 9:31 AM Reason For Exam: PAIN IN R KNEE No acute fracture or dislocation. Joint compartments are preserved. No joint effusion. IMPRESSION: 1. Negative RIGHT knee.
== END 2023-07-31 09:13 | disposition home or self-care (01) ==
LOC: RAD 09:13
PROVIDERS: PCP Internal Medicine; Visit Provider Nurse Practitioner Family
DX: M25.561 Pain in right knee (principal)
CPT/HCPCS: 73564

== ENCOUNTER → 2023-08-09 08:42 | Outpatient (BNVA) | payer MEDICARE, SELFPAY | PROVIDERS: PCP Internal Medicine; Visit Provider Nurse Practitioner | DX: M17.11 Unilateral primary osteoarthritis, right knee; S83.411A Sprain of medial collateral ligament of right knee, initial encounter; W19.XXXA Unspecified fall, initial encounter; Z46.89 Encounter for fitting and adjustment of other specified devices; M25.561 Pain in right knee | CPT/HCPCS: 73560; 73565; 97760; 99204; L1812 ==

== ENCOUNTER 2023-08-09 11:04 | Outpatient (CLI) | payer MEDICARE, SELFPAY | END 2023-08-09 11:05 | disposition home or self-care (01) | LOC: SPT 11:04 | PROVIDERS: PCP Internal Medicine; Visit Provider Nurse Practitioner | DX: Z46.89 Encounter for fitting and adjustment of other specified devices (principal); M25.561 Pain in right knee | CPT/HCPCS: 97760; 99204; L1812 ==

== ENCOUNTER → 2023-09-06 08:50 | Outpatient (BNVA) | payer MEDICARE, SELFPAY | PROVIDERS: PCP Internal Medicine; Visit Provider Nurse Practitioner | DX: M17.11 Unilateral primary osteoarthritis, right knee; S83.411A Sprain of medial collateral ligament of right knee, initial encounter; X58.XXXA Exposure to other specified factors, initial encounter | CPT/HCPCS: 99213 ==

== ENCOUNTER → 2023-09-18 08:37 | Outpatient (BNVA) | payer MEDICARE, SELFPAY | PROVIDERS: PCP Internal Medicine; Visit Provider Nurse Practitioner Family | DX: Z85.820 Personal history of malignant melanoma of skin (principal); Z85.828 Personal history of other malignant neoplasm of skin; L82.1 Other seborrheic keratosis; D22.5 Melanocytic nevi of trunk; L81.4 Other melanin hyperpigmentation | CPT/HCPCS: 17000; 17110; 99213 ==

== ENCOUNTER → 2023-10-04 08:42 | Outpatient (BNVA) | payer MEDICARE, SELFPAY | PROVIDERS: PCP Internal Medicine; Visit Provider Podiatrist Foot & Ankle Surgery | DX: L60.3 Nail dystrophy (principal); M76.61 Achilles tendinitis, right leg; E11.42 Type 2 diabetes mellitus with diabetic polyneuropathy; I73.9 Peripheral vascular disease, unspecified; L84 Corns and callosities; Z79.4 Long term (current) use of insulin; Z79.84 Long term (current) use of oral hypoglycemic drugs | CPT/HCPCS: 11055; 11721; 99213 ==

== ENCOUNTER → 2023-10-16 09:32 | Outpatient (BNVA) | payer MEDICARE, SELFPAY | PROVIDERS: PCP Internal Medicine; Visit Provider Nurse Practitioner Family | DX: L82.1 Other seborrheic keratosis (principal); L81.4 Other melanin hyperpigmentation; L57.8 Other skin changes due to chronic exposure to nonionizing radiation; D22.5 Melanocytic nevi of trunk; L57.0 Actinic keratosis; D48.5 Neoplasm of uncertain behavior of skin; Z85.820 Personal history of malignant melanoma of skin; Z85.828 Personal history of other malignant neoplasm of skin | CPT/HCPCS: 11102; 17000; 99213 ==

== ENCOUNTER → 2023-11-09 09:08 | Outpatient (BNVA) | payer MEDICARE, SELFPAY | PROVIDERS: PCP Internal Medicine; Visit Provider Dermatology | DX: C44.622 Squamous cell carcinoma of skin of right upper limb, including shoulder (principal); L82.0 Inflamed seborrheic keratosis; L53.8 Other specified erythematous conditions; L29.8 Other pruritus | CPT/HCPCS: 11603; 12032; 17110 ==

== ENCOUNTER → 2023-11-20 12:35 | Outpatient (BNVA) | payer MEDICARE, SELFPAY | PROVIDERS: PCP Internal Medicine; Visit Provider Internal Medicine | DX: I10 Essential (primary) hypertension (principal); E11.9 Type 2 diabetes mellitus without complications; I45.2 Bifascicular block; Z79.4 Long term (current) use of insulin | CPT/HCPCS: 99214 ==

== ENCOUNTER → 2024-01-09 08:24 | Outpatient (BNVA) | payer MEDICARE, SELFPAY | PROVIDERS: PCP Internal Medicine; Visit Provider Podiatrist Foot & Ankle Surgery | DX: L60.3 Nail dystrophy (principal); M76.61 Achilles tendinitis, right leg; E11.42 Type 2 diabetes mellitus with diabetic polyneuropathy; I73.9 Peripheral vascular disease, unspecified; L84 Corns and callosities; Z79.4 Long term (current) use of insulin; Z79.84 Long term (current) use of oral hypoglycemic drugs | CPT/HCPCS: 99214 ==

== ENCOUNTER 2024-01-12 08:46 | Day surgery (SDC) | payer MEDICARE, SELFPAY ==
[2024-01-12] VITALS (8 sets, daily range): BP systolic 96–129; BP diastolic 45–71; PULSE 47–55; RESP 12–18; TEMP 36.1–36.4; O2SAT 93–95; BMI 30.5
[2024-01-12 09:50] LABS: Glucose Point of Care 139 mg/dL (70-110)
--- NOTE | 2024-01-12 09:58 | ANES.PREANE2 ---
Pre-Anesthetic Assessment Height/Weight: Height 1.83 m Weight 102.058 kg Temp Pulse Resp BP Pulse Ox O2 Del Method 97.3 F L 55 L 18 122/62 95 Room Air 01/12/24 09:11 01/12/24 09:11 01/12/24 09:11 01/12/24 09:11 01/12/24 09:11 01/12/24 09:11 Preop Diagnosis: Right Achilles tendinosis Operation Date: 01/12/24 10:30 Proposed Procedures p Debridement/ Micro debridement right Achilles tendon(Right) - Hugo Srinivasan DPM s Platelet Rich Plasma Injection(Right) - Hugo Srinivasan DPM Familial anesthetic complications: None Was Beta Devika taken within 24 hours: N/A Was Clonidine taken within 24 hours: N/A Last intake: Intake Last Liquid Date 01/11/24 Last Liquid Time 19:00 Last Solid Date 01/11/24 Last Solid Time 18:00 Social No alcohol and No tobacco Exam alert, oriented x 3, clear to auscultation bilaterally and regular rate & rhythm Airway Mallampati: Class II Dentition: chipped (poor dentition) CV/HEM Hypertension bifascicular block - stable, recent cardiology visit Metabolic Diabetes Mellitus and Hyperlipidemia Anesthetic Plan ASA status: 3 Anesthesia: MAC Risk of > 500 ml blood loss (7ml/kg in children): No Medications/Allergies Home Medications Medication Instructions Recorded Confirmed Last Taken Type amlodipine 5 mg tablet 5 mg PO QDAY 09/19/19 01/12/24 01/12/24 History aspirin 81 mg tablet,delayed 81 mg PO QAM 09/19/19 01/12/24 01/12/24 History release (Adult Low Dose Aspirin) calcium carbonate 600 mg PO QDAY 09/19/19 01/12/24 01/11/24 History citalopram 20 mg tablet 20 mg PO QDAY 09/19/19 01/12/24 01/12/24 History hydrochlorothiazide 25 mg tablet 25 mg PO QAM 09/19/19 01/12/24 01/12/24 History multivitamin 1 tab PO QAM 09/19/19 01/12/24 01/11/24 History potassium gluconate 2.5 mEq tablet 2.5 meq PO QDAY 09/19/19 01/12/24 01/11/24 History tamsulosin 0.4 mg capsule 0.8 mg PO QDAY 09/08/20 01/12/24 01/11/24 History allopurinol 300 mg tablet 300 mg PO QAM 12/07/20 01/12/24 01/12/24 History cholecalciferol (vitamin D3) 25 3,000 unit PO QDAY 12/07/20 01/12/24 01/11/24 History mcg (1,000 unit) tablet (Vitamin D3) gabapentin 100 mg capsule 200 mg PO TID 12/07/20 01/12/24 01/12/24 History atorvastatin 40 mg tablet 40 mg PO DAILY 06/15/21 01/12/24 01/11/24 History metformin 500 mg tablet,extended 500 mg PO BID 06/15/21 01/12/24 01/11/24 History release 24 hr insulin lispro 100 unit/mL 1 - 15 unit SUBCUT BID 11/22/21 01/12/24 01/11/24 History subcutaneous solution (Humalog U-100 Insulin) finasteride 5 mg tablet 5 mg PO QDAY #90 tabs 12/13/22 01/12/24 01/12/24 Rx physical therapy #1 ea 02/15/23 01/12/24 Unknown Rx Diabetic Shoes with 3 Accomodative #1 ea 04/19/23 01/12/24 Unknown Rx Inserts Night Splint to the right #1 ea 04/19/23 01/12/24 Unknown Rx insulin glargine 100 unit/mL (3 55 unit SUBCUT DAILY 07/03/23 01/12/24 01/11/24 History mL) subcutaneous pen (Lantus Solostar U-100 Insulin) losartan 50 mg tablet 50 mg PO DAILY 07/03/23 01/12/24 01/11/24 History metoprolol tartrate 50 mg tablet 50 mg PO BID 07/03/23 01/12/24 01/12/24 History Hinged Knee Brace #1 ea 08/09/23 01/12/24 Unknown Rx empagliflozin 10 mg tablet 10 mg PO DAILY 01/09/24 01/12/24 01/11/24 History (Jardiance) Allergies Allergy/AdvReac Type Severity Reaction Status Date / Time lisinopril Allergy unknown Verified 01/12/24 09:11 naproxen AdvReac short term Verified 01/12/24 09:11 memory loss PFSH Anesthesia Medical History Primary osteoarthritis of right knee MCL sprain of right knee Gout Nephrolithiasis Hyperlipidemia Diabetes mellitus Accelerated essential hypertension Surgical History Status post colonoscopy (01/07/21) Cecal, transverse colon, descending colon , rectal polyp History of circumcision Hx of tonsillectomy History of arthroscopy of left knee History of hemiarthroplasty of left hip Family History Father , AT AGE 54 Renal failure Mother , AT AGE 92 Dementia Alzheimer disease Other Diabetes Heart disease Social History Smoking and tobacco/nicotine status: never used tobacco/nicotine Alcohol intake: current Alcohol intake frequency: holidays/special occasions only Alcohol type: beer and wine Substance/Drug Use: never Marital status: Current occupational status: retired Data Anesthesia Cardiac Studies: Echocardiogram 12/15/22
[2024-01-12] MEDS: ceFAZolin 2,000 MG in sodium chloride 0.9% (plus) 50 ML 100 MG IV (10:10)
[2024-01-12] MEDS: sodium chloride 0.9% 1,000 ML 30 ML IV (10:10)
--- NOTE | 2024-01-12 10:11 | W.PM.OPSUD ---
Surgery/Procedure H&P Update DATE OF PROCEDURE: January 12, 2024 DATE H&P PERFORMED: 01/12/24 H&P UPDATE INFORMATION: I have reviewed H&P completed within last 30 days, I have examined patient prior to procedure, No changes to prior documentation and H&[place] is in [facility] [place] indicated PREOP DIAGNOSIS: Right Achilles tendinosis PLANNED PROCEDURE: Operation Date: 01/12/24 10:30 Proposed Procedures p Debridement/ Micro debridement right Achilles tendon(Right) - Hugo Srinivasan DPM s Platelet Rich Plasma Injection(Right) - Hugo Srinivasan DPM
[2024-01-12] MEDS: lidocaine 2% INJ 20 mL INJECTION (10:23)
[2024-01-12] MEDS: BUPivacaine 0.5% INJ 30 mL 20 ML XX (10:23)
--- NOTE | 2024-01-12 10:41 | P.BOP_ITS ---
Date of Procedure: 11/03/23 Surgeon: Hugo Srinivasan DPM Commission Associate(s): Sarai Procedure(s) performed: Debridement right Achilles tendon, platelet rich plasma injection right Achilles tendon. Findings of the procedure(s): Tendinosis of right Achilles Estimated blood loss: Less than 2 mL Specimen(s) removed: No specimens Post-operative diagnosis: Left Achilles tendinosis No complications with anesthesia or surgery
--- NOTE | 2024-01-12 11:47 | P.OP_ITS ---
Operative Report Date of procedure: January 12, 2024 Pre-op diagnosis: Achilles tendinitis, right leg M76.61 Post-op diagnosis: Achilles tendinitis, right leg M76.61 Procedure done: Debridement of right Achilles tendon. CPT code 73427 Platelet rich plasma injection right Achilles. CPT code 60550 with platelet rich plasma injection Surgeon: Hugo Srinivasan DPM Supervisor Tree Trimming: See intraoperative documentation Estimated blood loss: 2 mL See intraoperative documentation IV fluids: See intraoperative documentation Urine output: None Complications: None Brief History: Patient has failed greater than 6 months of conservative treatments consisting of immobilization, custom orthotics, shoe gear modification, active modification, stretching, eccentric loading, anti-inflammatories, formal physical therapy. Wishes to proceed with surgical consultation in regards to right Achilles tendinopathy. Discussed formal open surgical debridement, repair and potential tendon transfer versus minimally invasive approach with micro debridement and PRP injection patient wishes to proceed with minimally invasive approach understanding that should this fail to alleviate his symptoms he would require more invasive and longer recovery reconstructive surgery. I reviewed at length with the patient, the risks, potential complications, benefits, alternatives, expectations, and typical outcomes associated with the surgery. The risks and potential complications were explained in detail, including but not limited to infection, wound dehiscence or soft tissue complications, bleeding and hematoma, chronic edema, neuritis or nerve damage producing numbness or chronic pain, CRPS, failure to relieve pain or worsening pain, thick / painful / unsightly scar, limited motion / stiffness, malposition, delayed union, malunion, or nonunion, fracture, reaction to implants, anesthetic complications, venous thromboembolism, and deformity recurrence. I discussed the notion of no regrets with the patient as it pertains to complications and outcomes. The patient seemed to understand the nature of the proposed care and required convalescence. They asked appropriate questions, answered to their satisfaction. They are aware no guarantees can be made as to a satisfactory outcome and they understand there may be other possible unforeseen complications or outcomes not listed here that will be treated accordingly if they arise. There were no written or implied guarantees given to the patient. They gave informed consent to proceed. Procedure: Under mild sedation patient was brought to the operating room and remained on the gurney in supine position. A timeout was performed. Anesthesia was then administered by the anesthesia service. Local anesthesia injected by myself. Well-padded pneumatic tourniquet applied to the right high calf. Right lower extremity was scrubbed, prepped and draped utilizing normal aseptic technique. Right foot and ankle were then exanguinated with Esmarch bandage and tourniquet inflated to 250 mmHg. Attention was directed to the right Achilles tendon from watershed zone down to insertion was mild thickening. Incision made directly over the Achilles tendon and degenerative tendon was sharply debrided along with multiple micro debridements along the affected tendon with Coblation creating perforations within the tendon promoting vascular ingrowing and healing. Previously prepared sample of patient's on blood was in process to obtain platelet rich plasma which was then injected around the debrided Achilles tendon to enhance healing total of 1.5 cc of platelet rich plasma was injected. The incision was irrigated with copious amounts of sterile skin solution. OpSite over the operative site was applied followed by compressive dressing and patient placed into a cam boot. Tourniquet was deflated and a prompt hyperemic response is noted to the distal digits of the right foot. Patient tolerated the procedure and anesthesia well and was transferred to the PACU with vital signs stable and vascular status intact. Following a period of postoperative monitoring he will be discharged home was given at home care instructions and scheduled follow-up.
--- NOTE | 2024-01-12 11:55 | ANE.PACU2 ---
Inpatient post-anesthesia follow up: Airway intact: Yes Vital signs: Temperature 97.0 F Pulse Rate 52 Respiratory Rate 18 Blood Pressure 123/71 Pulse Oximetry 95 Oxygen Delivery Me thod Room Air Oxygen Flow Rate Fraction of Inspir ed Oxygen Hydration adequate: Yes Nausea and vomiting: No Pain level: 1 Mental status: Baseline
== END 2024-01-12 11:58 | disposition home or self-care (01) ==
PROVIDERS: PCP Internal Medicine; Visit Provider Podiatrist Foot & Ankle Surgery
PROC: (CPT 20550; principal; 2024-01-12 10:20)
PROC: (CPT 0232T; 2024-01-12 10:20)
DX: M76.61 Achilles tendinitis, right leg (principal); E78.5 Hyperlipidemia, unspecified; I10 Essential (primary) hypertension; E11.9 Type 2 diabetes mellitus without complications; Z79.82 Long term (current) use of aspirin; Z79.84 Long term (current) use of oral hypoglycemic drugs; Z79.4 Long term (current) use of insulin
CPT/HCPCS: 20550; 27680; 36416; 82962; C1713; J0690; J2704; J3010; J3490; J7030

== ENCOUNTER → 2024-02-06 13:39 | Outpatient (BNVA) | payer MEDICARE, SELFPAY | PROVIDERS: PCP Internal Medicine; Visit Provider Podiatrist Foot & Ankle Surgery | DX: M76.61 Achilles tendinitis, right leg (principal) | CPT/HCPCS: 99024 ==

== ENCOUNTER → 2024-03-18 10:09 | Outpatient (BNVA) | payer MEDICARE, SELFPAY | PROVIDERS: PCP Internal Medicine; Visit Provider Nurse Practitioner Family | DX: L82.0 Inflamed seborrheic keratosis (principal); D48.5 Neoplasm of uncertain behavior of skin; L57.0 Actinic keratosis; Z85.828 Personal history of other malignant neoplasm of skin; Z85.820 Personal history of malignant melanoma of skin | CPT/HCPCS: 11102; 17000; 17110; 99213 ==

== ENCOUNTER → 2024-04-02 14:32 | Outpatient (BNVA) | payer MEDICARE, SELFPAY | PROVIDERS: PCP Internal Medicine; Visit Provider Nurse Practitioner Family | DX: C44.529 Squamous cell carcinoma of skin of other part of trunk (principal); L91.8 Other hypertrophic disorders of the skin; L57.8 Other skin changes due to chronic exposure to nonionizing radiation | CPT/HCPCS: 17261; 99213 ==

== ENCOUNTER → 2024-04-09 09:39 | Outpatient (BNVA) | payer MEDICARE, SELFPAY | PROVIDERS: PCP Internal Medicine; Visit Provider Podiatrist Foot & Ankle Surgery | DX: L60.3 Nail dystrophy (principal); M76.61 Achilles tendinitis, right leg; E11.42 Type 2 diabetes mellitus with diabetic polyneuropathy; I73.9 Peripheral vascular disease, unspecified; Z79.4 Long term (current) use of insulin | CPT/HCPCS: 11721 ==

== ENCOUNTER 2024-06-26 13:01 | Inpatient (IN) | payer MEDICARE, SELFPAY ==
[2024-06-26] VITALS (12 sets, daily range): BP systolic 166–178; BP diastolic 60–86; PULSE 59–86; RESP 16–18; TEMP 36.6–37.3; O2SAT 92–96; BMI 30.5; BMI 31.2
--- NOTE | 2024-06-26 13:04 | ECG_ITS ---
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 Measurements Intervals [place] Rate: 59 P: 77 VA: 218 QRS: -79 QRSD: 165 T: -4 QT: 494 QTc: 490 Interpretive Statements SINUS BRADYCARDIA WITH FIRST DEGREE AV BLOCK LEFT AXIS DEVIATION [QRS AXIS < -30] RIGHT BUNDLE BRANCH BLOCK [120+ ms QRS DURATION, UPRIGHT V1, 40+ ms S IN I/aVL/V4/V5/V6] Compared to ECG 07/03/2023 14:00:37 First degree AV block now present Left-axis deviation now present Sinus rhythm no longer present Right-axis deviation no longer present Electronically Signed On 06-27-2024 21:50:29 ACTION INSTALLER by Guy Alcantara M.D. [email or web address]
--- NOTE | 2024-06-26 13:04 | XR_ITS ---
WS: [id number] XR chest 1V portable [id number] REASON FOR EXAM: fall FINDINGS: The chest appears unchanged compared to 07/03/2023. Moderate tortuosity of the thoracic aorta with normal heart size. Calcified granulomas disease in both hemithoraces. No acute pulmonary parenchymal or pleural abnormality. Moderate degenerative spondylosis in the thoracic spine. Bony thorax otherwise unremarkable. XR/XR chest 1V portable [id number] IMPRESSION: No acute abnormality.
--- NOTE | 2024-06-26 13:04 | XR_ITS ---
WS: [id number] XR hip RT 2-3V wo/w pel* [id number] REASON FOR EXAM: injury FINDINGS: 2 part Proximal femur, superior and inferior pubic ramus, and the acetabulum are intact. Minimally displaced intertrochanteric fracture of the right hip. XR/XR hip RT 2-3V wo/w pel* [id number] IMPRESSION: Right hip fracture as above.
--- NOTE | 2024-06-26 13:24 | ED_ITS ---
HPI - Extremity Problem 2 General: Chief complaint: Extremity Injury, Lower Stated complaint: Fall, RT hip pain Time Seen by Provider: 06/26/24 13:02 Source: patient and EMS Mode of arrival: EMS Limitations: no limitations History of Present Illness: Patient is a 78-year-old male who is brought to the emergency department by ambulance due to fall and right hip pain onset a few hours prior to arrival. Per patient, he was working outside when he had a simple trip and fall, injuring his right hip. He was reportedly on the ground for a couple of hours before family noticed him. History of left hip replacement, he states he has not been ambulatory since due to the pain in his right hip. States that when he still he does not feel it, but when he moves it is a 10/10 pain. No distal neurovascular deficits reported. He did not have any symptoms prior to falling, states he just lost his balance. Does not report any use of blood thinners, I do not see any blood thinners in his med list. Denies hitting his head or losing consciousness. He is not reporting any nausea or vomiting, chest pain, shortness of breath, other symptoms at this time. MD Complaint: joint pain Onset (ago): hour(s) Pain Consistency: constant Location: right and lower extremity (hip) Radiation: distal Relieving factors: immobilization Exacerbating factors: range of motion Associated symptoms: Deny chest pain, fever(s) or rash Related Data Home Medications Medication Instructions Recorded Confirmed amlodipine 5 mg tablet 5 mg PO QAM 09/19/19 06/26/24 aspirin 81 mg tablet,delayed 81 mg PO QAM 09/19/19 06/26/24 release (Adult Low Dose Aspirin) calcium carbonate 600 mg PO QPM 09/19/19 06/26/24 citalopram 20 mg tablet 20 mg PO QPM 09/19/19 06/26/24 hydrochlorothiazide 25 mg tablet 25 mg PO QAM 09/19/19 06/26/24 multivitamin 1 tab PO QAM 09/19/19 06/26/24 tamsulosin 0.4 mg capsule 0.8 mg PO QPM 09/08/20 06/26/24 allopurinol 300 mg tablet 300 mg PO QAM 12/07/20 06/26/24 cholecalciferol (vitamin D3) 25 3,000 unit PO QPM 12/07/20 06/26/24 mcg (1,000 unit) tablet (Vitamin D3) gabapentin 100 mg capsule 100 mg PO TID 12/07/20 06/26/24 atorvastatin 40 mg tablet 40 mg PO QPM 06/15/21 06/26/24 metformin 500 mg tablet,extended 500 mg PO BID 06/15/21 06/26/24 release 24 hr insulin lispro 100 unit/mL See Rx Instructions .Route .COMPLEX 11/22/21 06/26/24 subcutaneous solution (Humalog U-100 Insulin) insulin glargine 100 unit/mL (3 55 unit SUBCUT QPM 07/03/23 06/26/24 mL) subcutaneous pen (Lantus Solostar U-100 Insulin) losartan 50 mg tablet 50 mg PO QPM 07/03/23 06/26/24 metoprolol tartrate 50 mg tablet 50 mg PO BID 07/03/23 06/26/24 empagliflozin 10 mg tablet 10 mg PO DAILY 01/09/24 06/26/24 (Jardiance) finasteride 5 mg tablet 5 mg PO QAM 06/26/24 06/26/24 potassium gluconate 600 mg (99 mg) 600 mg PO DAILY 06/26/24 06/26/24 tablet Previous Rx's Medication Instructions Recorded physical therapy #1 ea 02/15/23 Diabetic Shoes with 3 Accomodative #1 ea 04/19/23 Inserts Night Splint to the right #1 ea 04/19/23 Hinged Knee Brace #1 ea 08/09/23 Allergies Allergy/AdvReac Type Severity Reaction Status Date / Time lisinopril Allergy unknown Verified 04/09/24 09:44 naproxen AdvReac short term Verified 04/09/24 09:44 memory loss Review of Systems 2 General: Reports: 10 or more systems reviewed and unremarkable except in HPI and below Const: Reports: other (fall); Denies: fever(s) or chills Card: Denies: chest pain Resp: Denies: dyspnea or productive cough GI: Denies: abdominal pain, nausea, vomiting or diarrhea : Denies: flank pain Musc: Reports: joint pain (right hip) and limited range of motion; Denies: neck pain, back pain, extremity pain, extremity swelling, joint swelling, joint redness, joint warmth or muscle weakness Skin/Breast: Denies: rash Neuro: Denies: headache(s), numbness in extremities or weakness in extremities PFSH ED 2 PFSH: Medical History Primary osteoarthritis of right knee MCL sprain of right knee Gout Nephrolithiasis Hyperlipidemia Diabetes mellitus Accelerated essential hypertension Surgical History Status post colonoscopy (01/07/21) Cecal, transverse colon, descending colon , rectal polyp History of circumcision Hx of tonsillectomy History of arthroscopy of left knee History of hemiarthroplasty of left hip Family History Father , AT AGE 54 Renal failure Mother , AT AGE 92 Dementia Alzheimer disease Other Diabetes Heart disease Social History Smoking and tobacco/nicotine status: never used tobacco/nicotine Alcohol intake: current Alcohol intake frequency: holidays/special occasions only Alcohol type: beer and wine Substance/Drug Use: never Marital status: Current occupational status: retired Physical Exam 2 Const: COMMON NORMALS: no acute distress, patient oriented x3 and no limitations GENERAL APPEARANCE: cooperative, comfortable and well developed ORIENTATION/CONSCIOUSNESS: Yes awake, Yes oriented to person, Yes oriented to place and Yes oriented to time OTHER: His skin is cool to the touch and damp, A&O x4 HENMT: COMMON NORMALS: normocephalic, atraumatic and hearing grossly normal bilaterally HEAD & SCALP: normocephalic and atraumatic Eye: COMMON NORMALS: Equal, round and reactive pupils present, EOMs intact bilaterally and conjunctivae normal CONJUNCTIVA: Yes conjunctivae normal P UPIL: Yes Equal, round and reactive pupils present Neck/C-Spine: COMMON NORMALS: full ROM, supple and no JVD Resp: COMMON NORMALS: normal respiratory effort, No retractions, No use of accessory muscles and clear to auscultation bilaterally AUSCULTATION: clear to auscultation bilaterally Cardio: COMMON NORMALS: no JVD, regular rate, regular rhythm, No clicks present (Cardio), No murmurs present (Cardio) and No rub (Cardio) RATE: r egular rate RHYTHM: regular rhythm GI: COMMON NORMALS: Normal to inspection, nondistended, normoactive bowel sounds present, Soft to palpation and non-tender AUSCULTATION: Yes normoactive bowel sounds PALPATION: Yes Soft to palpation RECTAL EXAM: Yes deferred Extremity: NARRATIVE EXTREMITY EXAM: Shortening and external rotation of the right lower extremity. Tenderness to palpation of the right lateral hip extending distally down the right leg. Positive logroll. Cannot lift the extremity due to pain. He has good distal pulses, as mentioned his skin diffusely is cool to the touch secondary to being outside and down for a few hours. Neuro: COMMON NORMALS: patient oriented x3, moves all extremities, no focal motor deficits and no sensory deficits noted SENSORIUM/ORIENTATION: Yes oriented to person, Yes oriented to place and Yes oriented to time Psych: COMMON NORMALS: mental status grossly normal and Normal thought process present THOUGHT PROCESS: Normal thought process present Skin: COMMON NORMALS: no rashes or lesions noted GENERAL SKIN EXAM: no rashes or lesions noted Course 2 Vital Signs: Vital signs: Vital Signs Temperature 97.8 F 06/26/24 13:37 Pulse Rate 59 L 06/26/24 14:01 Respiratory Rate 16 06/26/24 14:01 Blood Pressure 169/69 06/26/24 14:01 Pulse Oximetry 93 06/26/24 14:01 Oxygen Delivery Me thod Room Air 06/26/24 14:01 MDM - Extremity (Nontraumatic) Medical Decision Making The patient presented by ambulance for a fall injuring his right hip, was down for a couple of hours labs are pending at this time. X-ray was obtained showing a right femoral neck fracture, he has a history of left hip replacement. Spoke with Dr. Anthony who agrees to see the patient and will most likely operate tomorrow, spoke with Dr. Cee, hospitalist, who agrees to accept the patient to the hospital for monitoring. Dr. Yepez putting in admit orders at this time. Patient's pain has been controlled here, he was given morphine for pain control and started on fluids pending his creatinine phosphokinase at this time. Lab Data 06/26/24 13:56 06/26/24 13:56 Radiology Impressions Chest X-Ray 06/26/24 13:04 IMPRESSION: No acute abnormality. Hip/Pelvis X-Ray 06/26/24 13:04 IMPRESSION: Right hip fracture as above. Laboratory Results WBC 12.51 10^3/uL (3.29-11.43) H 06/26/24 13:56 RBC 4.04 10^6/uL (3.85-5.65) 06/26/24 13:56 Hgb 12.70 g/dL (11.27-16.99) 06/26/24 13:56 Hct 38.2 % (37-53) 06/26/24 13:56 MCV 94.6 fl (82-101) 06/26/24 13:56 MCH 31.4 pg (27-33) 06/26/24 13:56 MCHC 33.2 g/dL (30-55) 06/26/24 13:56 RDW 13.3 % (12.1-15.1) 06/26/24 13:56 Plt Count 156 10^3/cmm (157-399) L 06/26/24 13:56 MPV 11.0 fL (7.4-10.4) H 06/26/24 13:56 Neut % (Auto) 80.5 % 06/26/24 13:56 Lymph % (Auto) 11.5 % 06/26/24 13:56 [place] % (Auto) 5.5 % 06/26/24 13:56 Eos % (Auto) 1.6 % 06/26/24 13:56 Baso % (Auto) 0.3 % 06/26/24 13:56 Neut # (Auto) 10.07 10^3/uL (1.8-7.7) H 06/26/24 13:56 Lymph # (Auto) 1.4 10^3/uL (0.8-4.8) 06/26/24 13:56 [place] # (Auto) 0.7 10^3/uL (0.2-0.9) 06/26/24 13:56 Eos # (Auto) 0.2 10^3/uL (0.0-0.8) 06/26/24 13:56 Baso # (Auto) 0.0 10^3/uL (0.0-0.1) 06/26/24 13:56 Nucleated RBC % (auto) 0 % 06/26/24 13:56 Nucleated RBCs # 0.0 /100WBC 06/26/24 13:56 All radiology interpretation(s) finalized by discharge Discharge Plan Discharge Patient Disposition: Admitted As Inpatient Clinical Impression: Fracture of femoral neck, right Qualifiers: Encounter type: initial encounter Fracture type: closed Qualified Code(s): S 72.001A - Fracture of unspecified part of neck of right femur, initial encounter for closed fracture Condition: Stable Coding Level of Care Code ED Web Applications Developer for Modesta Zhou
[2024-06-26] MEDS: morphine 4 mg/mL SDV 1 mL IVP ×2 (13:53→18:15)
[2024-06-26] MEDS: sodium chloride 0.9% 1,000 ML 999 ML IV (13:54)
--- NOTE | 2024-06-26 14:09 | P.HP_ITS ---
Providers/Chief Complaint 2 Primary Care Provider: Mili Soliman MD Chief Complaint: Fall, RT hip pain History of Present Illness Steven Root is a 78 year old male 78-year-old male with past medical history of nephrolithiasis, hyperlipidemia, diabetes mellitus, essential hypertension, osteoarthritis of right knee, gout who presented to the hospital today after a fall and subsequently developing right hip pain with acute onset few hours prior to arrival. He was working outside and had a mechanical fall injuring his left hip. He was on the ground for a few hours before family noticed him. He has had a left hip replacement in the past. He has not been very ambulatory due to right hip pain. Pain is 10 out of 10 when he moves. He says he lost his balance and it was purely a mechanical fall. Patient is not on any anticoagulation at home. Denies hitting his head or losing consciousness. Denies nausea vomiting diarrhea chest pain shortness of breath or any other symptoms at this time besides hip pain. Hip x-ray was obtained which shows displaced intertrochanteric fracture of right hip. Chest x-ray has been obtained, basic labs have been obtained CBC CMP INR however there are no results available for me to review at this time. EKG at baseline obtained does not show any acute ischemic changes. Medications/Allergies Home Medications Medication Instructions Recorded Confirmed Last Taken Type amlodipine 5 mg tablet 5 mg PO QAM 09/19/19 06/26/24 06/26/24 History aspirin 81 mg tablet,delayed 81 mg PO QAM 09/19/19 06/26/24 06/26/24 History release (Adult Low Dose Aspirin) calcium carbonate 600 mg PO QPM 09/19/19 06/26/24 06/25/24 History citalopram 20 mg tablet 20 mg PO QPM 09/19/19 06/26/24 06/25/24 History hydrochlorothiazide 25 mg tablet 25 mg PO QAM 09/19/19 06/26/24 06/26/24 History multivitamin 1 tab PO QAM 09/19/19 06/26/24 06/26/24 History tamsulosin 0.4 mg capsule 0.8 mg PO QPM 09/08/20 06/26/24 06/25/24 History allopurinol 300 mg tablet 300 mg PO QAM 12/07/20 06/26/24 06/26/24 History cholecalciferol (vitamin D3) 25 3,000 unit PO QPM 12/07/20 06/26/24 06/25/24 History mcg (1,000 unit) tablet (Vitamin D3) gabapentin 100 mg capsule 100 mg PO TID 12/07/20 06/26/24 06/26/24 History atorvastatin 40 mg tablet 40 mg PO QPM 06/15/21 06/26/24 06/25/24 History metformin 500 mg tablet,extended 500 mg PO BID 06/15/21 06/26/24 06/26/24 History release 24 hr insulin lispro 100 unit/mL See Rx Instructions .Route .COMPLEX 11/22/21 06/26/24 06/26/24 History subcutaneous solution (Humalog U-100 Insulin) physical therapy #1 ea 02/15/23 06/26/24 Unknown Rx Diabetic Shoes with 3 Accomodative #1 ea 04/19/23 06/26/24 Unknown Rx Inserts Night Splint to the right #1 ea 04/19/23 06/26/24 Unknown Rx insulin glargine 100 unit/mL (3 55 unit SUBCUT QPM 07/03/23 06/26/24 06/26/24 History mL) subcutaneous pen (Lantus Solostar U-100 Insulin) losartan 50 mg tablet 50 mg PO QPM 07/03/23 06/26/24 06/25/24 History metoprolol tartrate 50 mg tablet 50 mg PO BID 07/03/23 06/26/24 06/26/24 History Hinged Knee Brace #1 ea 08/09/23 06/26/24 Unknown Rx empagliflozin 10 mg tablet 10 mg PO DAILY 01/09/24 06/26/24 06/26/24 History (Jardiance) finasteride 5 mg tablet 5 mg PO QAM 06/26/24 06/26/24 06/26/24 History potassium gluconate 600 mg (99 mg) 600 mg PO DAILY 06/26/24 06/26/24 06/26/24 History tablet Allergies Allergy/AdvReac Type Severity Reaction Status Date / Time lisinopril Allergy unknown Verified 04/09/24 09:44 naproxen AdvReac short term Verified 04/09/24 09:44 memory loss PFSH Acute 2 PFSH: Medical History (Updated 06/26/24 @ 16:00 by Janie Cee MD) Primary osteoarthritis of right knee MCL sprain of right knee Gout Nephrolithiasis Hyperlipidemia Diabetes mellitus Accelerated essential hypertension Surgical History Status post colonoscopy (01/07/21) Cecal, transverse colon, descending colon , rectal polyp History of circumcision Hx of tonsillectomy History of arthroscopy of left knee History of hemiarthroplasty of left hip Family History Father , AT AGE 54 Renal failure Mother , AT AGE 92 Dementia Alzheimer disease Other Diabetes Heart disease Social History Smoking and tobacco/nicotine status: never used tobacco/nicotine Alcohol intake: current Alcohol intake frequency: holidays/special occasions only Alcohol type: beer and wine Substance/Drug Use: never Marital status: Current occupational status: retired Vitals/I&O/Wt Last Vital Signs Temp 97.8 F 06/26/24 13:37 Pulse 59 L 06/26/24 14:01 Resp 16 06/26/24 14:01 BP 169/69 06/26/24 14:01 Pulse Ox 93 06/26/24 14:01 O2 Del Method Room Air 06/26/24 14:01 Weight last 48 hrs Weight 102.058 kg Physical Exam 2 Narrative: General: Alert oriented x3, patient seen laying in bed appearing comfortable at this time as long as he does not move. When he does try to move his right leg he says it hurts. HEENT: Normocephalic, atraumatic, EOMI, breathing room air. Cardio: Regular rate rhythm, normal S1-S2, Respiratory: CTA bilaterally no wheezes no rhonchi present. GI: Abdomen soft, nontender, nondistended, bowel sounds + Behavior: Appropriate and cooperative Extremities: Right lower extremity externally rotated and shortened. Painful upon movement. Data 06/27/24 05:07 06/27/24 05:07 A&P Assessment and plan (1) Accelerated essential hypertension: (2) Diabetes mellitus: (3) BPH (benign prostatic hyperplasia): (4) Fracture of femoral neck, right: Qualifiers: Encounter type: initial encounter Fracture type: closed Qualified Code(s): S72.001A - Fracture of unspecified part of neck of right femur, initial encounter for closed fracture (5) Hyperlipidemia: Plan #Right displaced intertrochanteric hip fracture #Diabetes mellitus insulin-dependent #Hypertension #GERD #Gout #Hyperlipidemia ? Baseline EKG reviewed. No acute changes suggest acute coronary ischemia patient does have a right bundle branch block which is old. Patient denies any symptoms of chest pain shortness of breath at this time. He denies any palpitations. Denies any syncopal or presyncopal episodes. Last echo is from November 2022 showing normal EF 55% with grade 1 diastolic dysfunction. ? It was a purely mechanical fall as per patient. Did not hit his head or lose consciousness. ANO x 3 ? CBC CMP INR magnesium pending at this time ? Official read of hips x-rays also pending at this time ? Chest x-ray read is pending at this time however upon my own interpretation no evidence of acute pneumonia. ? Vitals are stable at this time ? Patient is on room air saturating 94%. ? Will admit to medicine floor for preop evaluation. ? Orthopedic surgery consulted. Case was discussed with Dr. Anthony by ER doctor. She will see patient in consultation. ? Keep n.p.o. at midnight for potential surgery in AM. ? Continue home amlodipine, aspirin, atorvastatin, citalopram, finasteride, hydrochlorothiazide. Will hold off on losartan at this time. ? Continue metoprolol tartrate 50 twice daily ? Hold metformin ? Placed on moderate dose intensity insulin sliding scale ? Dose reduce glargine to 30 units at bedtime. Full code DVT prophylaxis: Heparin subcu twice daily. Attestations 2 Medical Necessity Statement*: Greater than 2 midnight stay for management of right hip fracture. Diagnoses Accelerated essential hypertension I10 Diabetes mellitus E11.9 BPH (benign prostatic hyperplasia) N40.0 Fracture of femoral neck, right S72.001A Encounter type: initial encounter Fracture type: closed Hyperlipidemia E78.5
--- NOTE | 2024-06-26 14:28 | PC.PHAR ---
pt states he did take his morning medications and shows his concern for getting the rest of his daily medications. Verified all meds with pt.
[2024-06-26 14:44] LABS: Basophils % 0.3 %; Eosinophils # 0.2 10^3/uL (0.0-0.8); Eosinophils % 1.6 %; Hematocrit 38.2 % (37-53); Lymphocytes # 1.4 10^3/uL (0.8-4.8); Lymphocytes % 11.5 %; Mean Corpuscular HGB Conc 33.2 g/dL (30-55); Mean Corpuscular Hemoglobin 31.4 pg (27-33); Mean Corpuscular Volume 94.6 fl (82-101); Monocytes # 0.7 10^3/uL (0.2-0.9); Monocytes % 5.5 %; Neutrophils # 10.07 10^3/uL (1.8-7.7); Neutrophils % 80.5 %; Nucleated Red Blood Cells % 0 %; Platelet Count 156 10^3/cmm (157-399); Red Blood Count 4.04 10^6/uL (3.85-5.65); Red Cell Distribution Width 13.3 % (12.1-15.1); White Blood Count 12.51 10^3/uL (3.29-11.43)
[2024-06-26 14:56] LABS: INR 0.99 (0.8-1.2)
[2024-06-26 15:05] LABS: Alanine Aminotransferase 13 U/L (0-41); Alkaline Phosphatase 73 U/L (40-130); Aspartate Amino Transferase 24 U/L (0-40); Chloride 104 mmol/L (98-107); Creatine Phosphokinase 119 U/L (39-308); Globulin 2.4 g/dL (1.3-4.6); Potassium 4.5 mmol/L (3.5-5.1); Sodium 143 mmol/L (136-145)
[2024-06-26 15:38] LABS: Anion Gap 17.5 (5-19); Blood Urea Nitrogen 21 mg/dL (8-23); Calcium 8.3 mg/dL (8.5-10.5); Carbon Dioxide 26 mmol/L (22-29); Creatinine Clr Calc Pharmacy 75.2466; Total Bilirubin 0.5 mg/dL (0.15-1.2)
--- NOTE | 2024-06-26 15:49 | PC.NURSE ---
Report called to [facility] at 1550.
[2024-06-26 15:53] LABS: Glucose 136 mg/dL (65-115); Osmolality Calculated 301 mOsm/kg (285-295); Total Protein 6.4 g/dL (6.6-8.7)
--- NOTE | 2024-06-26 17:27 | PC.NURSE ---
pt refused to be cathed by this nurse, pt states he wants to be put under and sedated if pt has to be cathed.
[2024-06-26 17:33] LABS: Glucose Point of Care 78 mg/dL (70-110)
[2024-06-26] MEDS: tamsulosin 0.4 mg Capsule 0.8 MG PO (18:15)
[2024-06-26] MEDS: metoprolol tartrate 50 mg Tablet 25 MG PO (18:15)
[2024-06-26] MEDS: heparin 5,000 unit/mL INJ 1 mL 5000 UNIT SUBCUT (18:15)
[2024-06-26] MEDS: citalopram 20 mg Tablet PO (18:15)
[2024-06-26] MEDS: atorvastatin 40 mg Tablet PO (18:15)
[2024-06-26] MEDS: pantoprazole 40 mg SDV IVP (18:16)
[2024-06-26] MEDS: sodium chloride 0.9% 1,000 ML 75 ML IV (18:16)
[2024-06-26] MEDS: gabapentin 100 mg Capsule PO (20:59)
[2024-06-26] MEDS: oxyCODONE 5 mg IR Tab/Cap PO (20:59)
[2024-06-26 21:06] LABS: Glucose Point of Care 171 mg/dL (70-110)
[2024-06-26] MEDS: insulin lispro 100 unit/1 mL SUBCUT (21:09)
--- NOTE | 2024-06-26 21:55 | PC.NURSE ---
Patient refusing broderick. Patient using urinal.
[2024-06-27] VITALS (19 sets, daily range): BP systolic 126–184; BP diastolic 52–91; PULSE 59–82; RESP 12–18; TEMP 36.7–37.6; O2SAT 90–95
[2024-06-27] MEDS: sodium chloride 0.9% 1,000 ML 75 ML IV (05:10)
[2024-06-27 05:38] LABS: Basophils % 0.3 %; Eosinophils # 0.4 10^3/uL (0.0-0.8); Eosinophils % 4.2 %; Hematocrit 34.4 % (37-53); Lymphocytes # 2.1 10^3/uL (0.8-4.8); Lymphocytes % 21.7 %; Mean Corpuscular HGB Conc 32.8 g/dL (30-55); Mean Corpuscular Volume 94.5 fl (82-101); Mean Platelet Volume 10.8 fL (7.4-10.4); Monocytes # 1.1 10^3/uL (0.2-0.9); Monocytes % 11.7 %; Neutrophils % 61.7 %; Nucleated Red Blood Cells % 0 %; Platelet Count 142 10^3/cmm (157-399); Red Blood Count 3.64 10^6/uL (3.85-5.65); Red Cell Distribution Width 13.2 % (12.1-15.1); White Blood Count 9.56 10^3/uL (3.29-11.43)
[2024-06-27 05:50] LABS: INR 1.06 (0.8-1.2)
[2024-06-27 06:03] LABS: Alanine Aminotransferase 10 U/L (0-41); Albumin Level 3.4 g/dL (3.5-5.2); Alkaline Phosphatase 63 U/L (40-130); Anion Gap 15.7 (5-19); Aspartate Amino Transferase 14 U/L (0-40); Blood Urea Nitrogen 20 mg/dL (8-23); Calcium 7.3 mg/dL (8.5-10.5); Carbon Dioxide 26 mmol/L (22-29); Chloride 104 mmol/L (98-107); Creatinine Clr Calc Pharmacy 68.7755; Glucose 113 mg/dL (65-115); Magnesium 1.3 mg/dL (1.7-2.3); Osmolality Calculated 297 mOsm/kg (285-295); Potassium 3.7 mmol/L (3.5-5.1); Sodium 142 mmol/L (136-145); Total Bilirubin 0.6 mg/dL (0.15-1.2); Total Protein 5.4 g/dL (6.6-8.7)
--- NOTE | 2024-06-27 06:11 | PC.NURSE ---
Patient denies need for pain medication at this time.
[2024-06-27 06:41] LABS: Glucose Point of Care 117 mg/dL (70-110)
[2024-06-27] MEDS: aspirin 81 mg EC Tablet PO (08:26)
[2024-06-27] MEDS: metoprolol tartrate 50 mg Tablet 25 MG PO (08:27)
[2024-06-27] MEDS: amlodipine 5 mg Tablet PO (08:27)
[2024-06-27] MEDS: multivitamin therapeutic Tablet 1 TAB PO (08:28)
[2024-06-27] MEDS: gabapentin 100 mg Capsule PO ×2 (08:28→14:05)
[2024-06-27] MEDS: oxyCODONE 5 mg IR Tab/Cap PO (08:44)
--- NOTE | 2024-06-27 09:56 | PC.CHAP ---
Pastoral Care Encounter/Spiritual Assessment Type of Contact [] Declined folding machine tender visit [] Patient/Family/Request visit [] Outpatient visit [] Follow-up visit [] Physician referral [] Code/Alert [x] Routine visit [] Staff referral [] Actively dying [] Patient sleeping [] Family support [] [] Out of room [] Palliative care [] [] Receiving care in room [] Pre-surgical visit [] Trauma [] Long length of stay [] ICU visit [] Other: Relational/Emotional Strength [x] Patient feels connected with others/family/visitors/staff [] Distress [] Loneliness/isolation [] Abandonment Spirituality of Patient [] Person of Alexia [] Attends [employer] of their Alexia [] Believes in Prayer [] Reads Bible or Holiness materials [x] There are Spiritual issues to be addressed Ed Special Education Teacher Interventions [] Prayer [x Active listening [] Non-anxious presence [x] Spiritual/emotional support [] Crisis/trauma care [] Spiritual counseling [] Bereavement support [] Provided bereavement packet [] Provided Bible/devotional materials [] Provided toy/stuffed animal, coloring book to patient or family member [] Provided Communion [] Anointing/[place] [] Salvation [x] Completed spiritual assessment [x] Other: Declined prayer Impact on Illness or Injury [] Angry [] Fearful [] Anxious [] Often cries [] Exhaustion [] Unable to work [] Unable to attend confucianist [] Unable to walk/stand [] Unable to read [] Unable to drive [] Unable to eat/drink [] Unable to sleep [] Unable to be with family [] Patient intubated [] Other: Summary Time spent with patient 5 min
[2024-06-27 11:10] LABS: Glucose Point of Care 136 mg/dL (70-110)
--- NOTE | 2024-06-27 13:09 | P.PN_ITS ---
Subjective 2 Subjective: Seen this morning. Patient has been n.p.o. since midnight. Going for hip surgery today. Denies chest pain shortness of breath. Blood sugar 117 this morning. Vitals/I&O/Wt Last Vital Signs Temp 98.3 F 06/27/24 11:49 Pulse 59 L 06/27/24 11:49 Resp 18 06/27/24 11:49 BP 143/69 06/27/24 11:49 Pulse Ox 92 06/27/24 11:49 O2 Del Method Room Air 06/27/24 11:49 06/26/24 06/27/24 06/27/24 22:59 06:59 14:59 Intake Total 1480 / 1480 817.5 / 2297.5 Output Total 300 / 300 500 / 800 600 / 600 Balance 1180 / 1180 317.5 / 1497.5 -600 / -600 Weight last 48 hrs Weight 103.238 kg Weight 104.508 kg Weight 102.058 kg Physical Exam 2 Narrative: General: Alert oriented x3, appears comfortable at this time HEENT: Normocephalic, atraumatic, EOMI, breathing room air. Cardio: Regular rate rhythm, normal S1-S2, Respiratory: CTA bilaterally no wheezes no rhonchi present. GI: Abdomen soft, nontender, nondistended, bowel sounds + Behavior: Appropriate and cooperative Extremities: Right hip fracture. Painful upon movement. Data 06/27/24 05:07 06/27/24 05:07 A&P Assessment and plan (1) Accelerated essential hypertension: (2) Diabetes mellitus: (3) BPH (benign prostatic hyperplasia): (4) Fracture of femoral neck, right: Qualifiers: Encounter type: initial encounter Fracture type: closed Qualified Code(s): S72.001A - Fracture of unspecified part of neck of right femur, initial encounter for closed fracture (5) Hyperlipidemia: Plan #Right displaced intertrochanteric hip fracture #Diabetes mellitus insulin-dependent #Hypertension #GERD #Gout #Hyperlipidemia ? Baseline EKG reviewed. No acute changes suggest acute coronary ischemia patient does have a right bundle branch block which is old. Patient denies any symptoms of chest pain shortness of breath at this time. He denies any palpitations. Denies any syncopal or presyncopal episodes. Last echo is from November 2022 showing normal EF 55% with grade 1 diastolic dysfunction. ? It was a purely mechanical fall as per patient. Did not hit his head or lose consciousness. ANO x 3 ? CBC CMP INR magnesium pending at this time ? Official read of hips x-rays also pending at this time ? Chest x-ray read is pending at this time however upon my own interpretation no evidence of acute pneumonia. ? Vitals are stable at this time ? Patient is on room air saturating 94%. ? Will admit to medicine floor for preop evaluation. ? Orthopedic surgery consulted. Case was discussed with Dr. Anthony by ER doctor. She will see patient in consultation. ? Keep n.p.o. at midnight for potential surgery in AM. ? Continue home amlodipine, aspirin, atorvastatin, citalopram, finasteride, hydrochlorothiazide. Will hold off on losartan at this time. ? Continue metoprolol tartrate 50 twice daily ? Hold metformin ? Placed on moderate dose intensity insulin sliding scale ? Dose reduce glargine to 30 units at bedtime. Full code DVT prophylaxis: Heparin subcu twice daily. 06/27/2024 -N.p.o. since midnight ? Surgical repair of right hip fracture today. ? Continue to monitor blood sugar. ? Labs reviewed. Magnesium 1.3. Will order 2 g of IV magnesium for patient today. Attestations 2 Medical Necessity Statement*: Greater than 2 midnight stay for management of right hip fracture. Diagnoses Accelerated essential hypertension I10 Diabetes mellitus E11.9 BPH (benign prostatic hyperplasia) N40.0 Fracture of femoral neck, right S72.001A Encounter type: initial encounter Fracture type: closed Hyperlipidemia E78.5
[2024-06-27] MEDS: magnesium sulfate premix 2 GM/50 ML PIGGYBACK IV (14:05)
--- NOTE | 2024-06-27 14:54 | ANES.PREANE2 ---
Pre-Anesthetic Assessment Height/Weight: Height 1.83 m Weight 103.238 kg Temp Pulse Resp BP Pulse Ox O2 Del Method 98.3 F 63 18 143/69 92 Room Air 06/27/24 11:49 06/27/24 14:00 06/27/24 11:49 06/27/24 11:49 06/27/24 11:49 06/27/24 11:49 Operation Date: 06/27/24 17:30 Proposed Procedures p Hemiarthroplasty Hip Bipolar Arthroplasty(Right) - Yue Anthony MD Familial anesthetic complications: None Was Beta Devika taken within 24 hours: Yes Was Clonidine taken within 24 hours: N/A Last intake: Intake Last Liquid Date 06/27/24 Last Liquid Time 05:30 Last Solid Date 06/26/24 Last Solid Time 18:00 Social No alcohol and No tobacco Exam alert, oriented x 3, clear to auscultation bilaterally and regular rate & rhythm Airway Mallampati: Class I Dentition: chipped CV/HEM Hypertension Metabolic Diabetes Mellitus and Hyperlipidemia Anesthetic Plan ASA status: 3 Anesthesia: General Risk of > 500 ml blood loss (7ml/kg in children): No Medications/Allergies Home Medications Medication Instructions Recorded Confirmed Last Taken Type amlodipine 5 mg tablet 5 mg PO QAM 09/19/19 06/26/24 06/26/24 History aspirin 81 mg tablet,delayed 81 mg PO QAM 09/19/19 06/26/24 06/26/24 History release (Adult Low Dose Aspirin) calcium carbonate 600 mg PO QPM 09/19/19 06/26/24 06/25/24 History citalopram 20 mg tablet 20 mg PO QPM 09/19/19 06/26/24 06/25/24 History hydrochlorothiazide 25 mg tablet 25 mg PO QAM 09/19/19 06/26/24 06/26/24 History multivitamin 1 tab PO QAM 09/19/19 06/26/24 06/26/24 History tamsulosin 0.4 mg capsule 0.8 mg PO QPM 09/08/20 06/26/24 06/25/24 History allopurinol 300 mg tablet 300 mg PO QAM 12/07/20 06/26/24 06/26/24 History cholecalciferol (vitamin D3) 25 3,000 unit PO QPM 12/07/20 06/26/24 06/25/24 History mcg (1,000 unit) tablet (Vitamin D3) gabapentin 100 mg capsule 100 mg PO TID 12/07/20 06/26/24 06/26/24 History atorvastatin 40 mg tablet 40 mg PO QPM 06/15/21 06/26/24 06/25/24 History metformin 500 mg tablet,extended 500 mg PO BID 06/15/21 06/26/24 06/26/24 History release 24 hr insulin lispro 100 unit/mL See Rx Instructions .Route .COMPLEX 11/22/21 06/26/24 06/26/24 History subcutaneous solution (Humalog U-100 Insulin) physical therapy #1 ea 02/15/23 06/26/24 Unknown Rx Diabetic Shoes with 3 Accomodative #1 ea 04/19/23 06/26/24 Unknown Rx Inserts Night Splint to the right #1 ea 04/19/23 06/26/24 Unknown Rx insulin glargine 100 unit/mL (3 55 unit SUBCUT QPM 07/03/23 06/26/24 06/26/24 History mL) subcutaneous pen (Lantus Solostar U-100 Insulin) losartan 50 mg tablet 50 mg PO QPM 07/03/23 06/26/24 06/25/24 History metoprolol tartrate 50 mg tablet 50 mg PO BID 07/03/23 06/26/24 06/26/24 History Hinged Knee Brace #1 ea 08/09/23 06/26/24 Unknown Rx empagliflozin 10 mg tablet 10 mg PO DAILY 01/09/24 06/26/24 06/26/24 History (Jardiance) finasteride 5 mg tablet 5 mg PO QAM 06/26/24 06/26/24 06/26/24 History potassium gluconate 600 mg (99 mg) 600 mg PO DAILY 06/26/24 06/26/24 06/26/24 History tablet Allergies Allergy/AdvReac Type Severity Reaction Status Date / Time lisinopril Allergy unknown Verified 04/09/24 09:44 naproxen AdvReac short term Verified 04/09/24 09:44 memory loss Current Medications Generic Name Dose Route Start Last Admin Trade Name Freq PRN Reason Stop Dose Admin Amlodipine Besylate 5 mg 06/27/24 09:00 06/27/24 08:27 Amlodipine 5 Mg Tablet PO 5 mg DAILY MARYANN Administration Aspirin 81 mg 06/27/24 09:00 06/27/24 08:26 Aspirin 81 Mg Ec Tablet PO 81 mg DAILY MARYANN Administration Atorvastatin Calcium 40 mg 06/26/24 18:00 06/26/24 18:15 Atorvastatin 40 Mg Tablet PO 40 mg QPM MARYANN Administration Citalopram Hydrobromide 20 mg 06/26/24 18:00 06/26/24 18:15 Citalopram 20 Mg Tablet PO 20 mg QPM MARYANN Administration Gabapentin 100 mg 06/26/24 21:00 06/27/24 14:05 Gabapentin 100 Mg Capsule PO 100 mg TID [facility] Administration Heparin Sodium (Porcine) 5,000 unit 06/27/24 09:00 06/27/24 10:23 Heparin 5,000 Unit/Ml Inj 1 Ml SUBCUT Not Given Q12H [facility] Insulin Glargine 30 unit 06/26/24 21:00 06/26/24 21:02 Insulin Glargine 100 Units/1 Ml SUBCUT Not Given BEDTIME [facility] Insulin Human Lispro 0 unit 06/26/24 18:00 06/27/24 11:33 Insulin Lispro 100 Unit/1 Ml SUBCUT Not Given WM&BEDTIME [facility] Protocol Metoprolol Tartrate 25 mg 06/26/24 18:00 06/27/24 08:27 Metoprolol Tartrate 50 Mg Tablet PO 25 mg BID [facility] Administration Morphine Sulfate 4 mg 06/26/24 16:01 06/26/24 18:15 Morphine 4 Mg/Ml Sdv 1 Ml IVP 4 mg Q4H PRN Administration SEVERE PAIN Multivitamins Therapeutic 1 tab 06/27/24 09:00 06/27/24 08:28 Multivitamin Therapeutic Tablet PO 1 tab DAILY MARYANN Administration Oxycodone HCl 5 mg 06/26/24 19:39 06/27/24 08:44 Oxycodone 5 Mg Ir Tab/Cap PO 5 mg Q4H PRN Administration MODERATE PAIN Pantoprazole Sodium 40 mg 06/26/24 16:30 06/26/24 18:16 Pantoprazole 40 Mg Sdv IVP 40 mg Q24H MARYANN Administration Tamsulosin HCl 0.8 mg 06/26/24 18:00 06/26/24 18:15 Tamsulosin 0.4 Mg Capsule PO 0.8 mg QPM MARYANN Administration [facility] Anesthesia Medical History (Updated 06/26/24 @ 16:00 by Janie Cee MD) Primary osteoarthritis of right knee MCL sprain of right knee Gout Nephrolithiasis Hyperlipidemia Diabetes mellitus Accelerated essential hypertension Surgical History Status post colonoscopy (01/07/21) Cecal, transverse colon, descending colon , rectal polyp History of circumcision Hx of tonsillectomy History of arthroscopy of left knee History of hemiarthroplasty of left hip Family History Father , AT AGE 54 Renal failure Mother , AT AGE 92 Dementia Alzheimer disease Other Diabetes Heart disease Social History Smoking and tobacco/nicotine status: never used tobacco/nicotine Alcohol intake: current Alcohol intake frequency: holidays/special occasions only Alcohol type: beer and wine Substance/Drug Use: never Marital status: Current occupational status: retired Data Anesthesia 06/27/24 05:07 06/27/24 05:07 Short CBC 06/26/24 06/27/24 Range/Units 13:56 05:07 WBC 12.51 H 9.56 (3.29-11.43) 10^3/uL Hgb 12.70 11.30 (11.27-16.99) g/dL Hct 38.2 34.4 L (37-53) % MCV 94.6 94.5 (82-101) fl Plt Count 156 L 142 L (157-399) 10^3/cmm Neut % (Auto) 80.5 61.7 % Neut # (Auto) 10.07 H 5.90 (1.8-7.7) 10^3/uL BMP 06/26/24 06/27/24 13:56 05:07 Sodium 143 142 Potassium 4.5 3.7 Chloride 104 104 Carbon Dioxide 26 26 BUN 21 20 Creatinine 1.0 1.1 Glucose 136 H 113 Calcium 8.3 L 7.3 L Cardiac Enzymes 06/26/24 Range/Units 13:56 Creatine Kinase 119 (39-308) U/L Liver Function 06/26/24 06/27/24 Range/Units 13:56 05:07 Total Bilirubin 0.5 0.6 (0.15-1.2) mg/dL AST 24 14 (0-40) U/L ALT 13 10 (0-41) U/L Alkaline Phosphatase 73 63 (40-130) U/L Albumin 4.0 3.4 L (3.5-5.2) g/dL Coags 06/26/24 06/27/24 13:56 05:07 PT 13.40 14.10 INR 0.99 1.06 Cardiac Studies: Echocardiogram 12/15/22
--- NOTE | 2024-06-27 16:04 | PM.CONSULT ---
Providers/Reason For Consult Consulting Physician/Specialty*: Yue Anthony MD -- Orthopedic Surgery Reason for Consult*: Right intertrochanteric femur fracture. Noted superior and inferior pubic rami fractures Attending Physician: Janie Cee MD Primary Care Provider: Mili Soliman MD History of Present Illness History of Present Illness Steven Root is a 78 year old male who presented to the [facility] emergency department via EMS after suffering a fall at home. The patient states that he was walking in his yard, when he tripped over a stump root, suffering a fall onto his right side. The patient had instant pain and was unable to get up. He states that he did not lose consciousness. He laid in the yard for approximately 2 hours before his returned home from work. Upon her arrival, EMS was contacted and the patient was taken to the hospital. Once being seen in the emergency department he was diagnosed with right intertrochanteric femur fracture, as well as superior and inferior pubic rami fractures. The patient was admitted to the hospitalist service, with consultation to our service for intervention for these fractures. Patient has a past medical history of nephrolithiasis, hyperlipidemia, diabetes mellitus, essential hypertension, BPH, gout and osteoarthritis. Review of Systems General: Reports: 10 or more systems reviewed and unremarkable except in HPI and below Const: Reports: other (fall); Denies: fever(s) or chills Card: Denies: chest pain Resp: Denies: dyspnea or productive cough GI: Denies: abdominal pain, nausea, vomiting or diarrhea : Denies: flank pain Musc: Reports: joint pain (right hip) and limited range of motion; Denies: neck pain, back pain, extremity pain, extremity swelling, joint swelling, joint redness, joint warmth or muscle weakness Skin/Breast: Denies: rash Neuro: Denies: headache(s), numbness in extremities or weakness in extremities Medications/Allergies Home Medications Medication Instructions Recorded Confirmed Last Taken Type amlodipine 5 mg tablet 5 mg PO QAM 09/19/19 06/26/24 06/26/24 History aspirin 81 mg tablet,delayed 81 mg PO QAM 09/19/19 06/26/24 06/26/24 History release (Adult Low Dose Aspirin) calcium carbonate 600 mg PO QPM 09/19/19 06/26/24 06/25/24 History citalopram 20 mg tablet 20 mg PO QPM 09/19/19 06/26/24 06/25/24 History hydrochlorothiazide 25 mg tablet 25 mg PO QAM 09/19/19 06/26/24 06/26/24 History multivitamin 1 tab PO QAM 09/19/19 06/26/24 06/26/24 History tamsulosin 0.4 mg capsule 0.8 mg PO QPM 09/08/20 06/26/24 06/25/24 History allopurinol 300 mg tablet 300 mg PO QAM 12/07/20 06/26/24 06/26/24 History cholecalciferol (vitamin D3) 25 3,000 unit PO QPM 12/07/20 06/26/24 06/25/24 History mcg (1,000 unit) tablet (Vitamin D3) gabapentin 100 mg capsule 100 mg PO TID 12/07/20 06/26/24 06/26/24 History atorvastatin 40 mg tablet 40 mg PO QPM 06/15/21 06/26/24 06/25/24 History metformin 500 mg tablet,extended 500 mg PO BID 06/15/21 06/26/24 06/26/24 History release 24 hr insulin lispro 100 unit/mL See Rx Instructions .Route .COMPLEX 11/22/21 06/26/24 06/26/24 History subcutaneous solution (Humalog U-100 Insulin) physical therapy #1 ea 02/15/23 06/26/24 Unknown Rx Diabetic Shoes with 3 Accomodative #1 ea 04/19/23 06/26/24 Unknown Rx Inserts Night Splint to the right #1 ea 04/19/23 06/26/24 Unknown Rx insulin glargine 100 unit/mL (3 55 unit SUBCUT QPM 07/03/23 06/26/24 06/26/24 History mL) subcutaneous pen (Lantus Solostar U-100 Insulin) losartan 50 mg tablet 50 mg PO QPM 07/03/23 06/26/24 06/25/24 History metoprolol tartrate 50 mg tablet 50 mg PO BID 07/03/23 06/26/24 06/26/24 History Hinged Knee Brace #1 ea 08/09/23 06/26/24 Unknown Rx empagliflozin 10 mg tablet 10 mg PO DAILY 01/09/24 06/26/24 06/26/24 History (Jardiance) finasteride 5 mg tablet 5 mg PO QAM 06/26/24 06/26/24 06/26/24 History potassium gluconate 600 mg (99 mg) 600 mg PO DAILY 06/26/24 06/26/24 06/26/24 History tablet Allergies Allergy/AdvReac Type Severity Reaction Status Date / Time lisinopril Allergy unknown Verified 04/09/24 09:44 naproxen AdvReac short term Verified 04/09/24 09:44 memory loss Current Medications Generic Name Dose Route Start Last Admin Trade Name Freq PRN Reason Stop Dose Admin Amlodipine Besylate 5 mg 06/27/24 09:00 06/27/24 08:27 Amlodipine 5 Mg Tablet PO 5 mg DAILY MARYANN Administration Aspirin 81 mg 06/27/24 09:00 06/27/24 08:26 Aspirin 81 Mg Ec Tablet PO 81 mg DAILY MARYANN Administration Atorvastatin Calcium 40 mg 06/26/24 18:00 06/26/24 18:15 Atorvastatin 40 Mg Tablet PO 40 mg QPM MARYANN Administration Citalopram Hydrobromide 20 mg 06/26/24 18:00 06/26/24 18:15 Citalopram 20 Mg Tablet PO 20 mg QPM MARYANN Administration Gabapentin 100 mg 06/26/24 21:00 06/27/24 14:05 Gabapentin 100 Mg Capsule PO 100 mg TID MARYANN Administration Heparin Sodium (Porcine) 5,000 unit 06/27/24 09:00 06/27/24 10:23 Heparin 5,000 Unit/Ml Inj 1 Ml SUBCUT Not Given Q12H [facility] Insulin Glargine 30 unit 06/26/24 21:00 06/26/24 21:02 Insulin Glargine 100 Units/1 Ml SUBCUT Not Given BEDTIME [facility] Insulin Human Lispro 0 unit 06/26/24 18:00 06/27/24 11:33 Insulin Lispro 100 Unit/1 Ml SUBCUT Not Given WM&BEDTIME [facility] Protocol Metoprolol Tartrate 25 mg 06/26/24 18:00 06/27/24 08:27 Metoprolol Tartrate 50 Mg Tablet PO 25 mg BID MARYANN Administration Morphine Sulfate 4 mg 06/26/24 16:01 06/26/24 18:15 Morphine 4 Mg/Ml Sdv 1 Ml IVP 4 mg Q4H PRN Administration SEVERE PAIN Multivitamins Therapeutic 1 tab 11/07/24 09:00 06/27/24 08:28 Multivitamin Therapeutic Tablet PO 1 tab DAILY MARYANN Administration Oxycodone HCl 5 mg 06/26/24 19:39 06/27/24 08:44 Oxycodone 5 Mg Ir Tab/Cap PO 5 mg Q4H PRN Administration MODERATE PAIN Pantoprazole Sodium 40 mg 06/26/24 16:30 06/26/24 18:16 Pantoprazole 40 Mg Sdv IVP 40 mg Q24H MARYANN Administration Tamsulosin HCl 0.8 mg 06/26/24 18:00 06/26/24 18:15 Tamsulosin 0.4 Mg Capsule PO 0.8 mg QPM MARYANN Administration PFSH Acute PFSH: Medical History Primary osteoarthritis of right knee MCL sprain of right knee Gout Nephrolithiasis Hyperlipidemia Diabetes mellitus Accelerated essential hypertension Surgical History Status post colonoscopy (01/07/21) Cecal, transverse colon, descending colon , rectal polyp History of circumcision Hx of tonsillectomy History of arthroscopy of left knee History of hemiarthroplasty of left hip Family History Father , AT AGE 54 Renal failure Mother , AT AGE 92 Dementia Alzheimer disease Other Diabetes Heart disease Social History Smoking and tobacco/nicotine status: never used tobacco/nicotine Alcohol intake: current Alcohol intake frequency: holidays/special occasions only Alcohol type: beer and wine Substance/Drug Use: never Marital status: Current occupational status: retired Vitals/I&O/Wt Last Vital Signs Temp 98.3 F 06/27/24 15:48 Pulse 65 06/27/24 15:48 Resp 18 06/27/24 15:48 BP 169/71 06/27/24 15:48 Pulse Ox 92 06/27/24 15:48 O2 Del Method Room Air 06/27/24 15:48 06/27/24 06/27/24 06/27/24 06:59 14:59 22:59 Intake Total 817.5 / 2297.5 50 / 50 Output Total 500 / 800 600 / 600 Balance 317.5 / 1497.5 -600 / -600 50 / -550 Weight last 48 hrs Weight 227 lb 9.6 oz Weight 230 lb 6.4 oz Weight 225 lb Physical Exam Const: COMMON NORMALS: no acute distress, average body habitus, patient oriented x3, no limitations, alert and well nourished GENERAL APPEARANCE: cooperative; not anxious and not combative ORIENTATION/CONSCIOUSNESS: Yes awake, Yes oriented to person, Yes oriented to place and Yes oriented to time HENMT: COMMON NORMALS: normocephalic and atraumatic HEAD & SCALP: normocephalic and atraumatic Neck/C-Spine: COMMON NORMALS: no JVD Resp: COMMON NORMALS: normal respiratory effort and clear to auscultation bilaterally AUSCULTATION: clear to auscultation bilaterally Cardio: COMMON NORMALS: no JVD, regular rate, regular rhythm, S1 normal heart sound present, S2 normal heart sound present and No murmurs present (Cardio) RATE: regular rate RHYTHM: regular rhythm HEART SOUNDS: S1 normal heart sound present and S2 normal heart sound present Extremity: RIGHT LOWER EXTREMITY: Yes hip joint Right hip: Yes inspection (No skin breakdown. Noted bruising. Mild swelling.), Yes palpation (TTP throughout the entirety of hip.), Yes ROM (Not assessed due to known fracture.), Yes neurovascular exam (Sensation intact to light touch. Rapid cap refill.) and Yes other (Noted external rotation of right foot.) and Yes lower leg (No calf pain or tenderness.) Right lower leg: Yes inspection (Noted scattered abrasions to LE. No S/S infection.), Yes neurovascular exam (Sensation intact to light touch. 2+ DP and PT pulses.) and Yes special tests Right lower leg special tests: Paula's sign: Negative Neuro: COMMON NORMALS: patient oriented x3 SENSORIUM/ORIENTATION: Yes alert, Yes oriented to person, Yes oriented to place and Yes oriented to time Psych: ATTITUDE: Yes engaged Skin: COMMON NORMALS: no rashes or lesions noted, turgor normal and no jaundice GENERAL SKIN EXAM: no rashes or lesions noted and turgor normal Data 06/27/24 05:07 06/27/24 05:07 Xray Ortho: Radiologist's impression: FINDINGS: 2 part Proximal femur, superior and inferior pubic ramus, and the acetabulum are intact. Minimally displaced intertrochanteric fracture of the right hip. XR/XR hip RT 2-3V wo/w pel* [id number] IMPRESSION: Right hip fracture as above. A&P Assessment and plan (1) Intertrochanteric fracture of right femur: Steven is a 78-year-old male patient, who presented to the [facility] emergency department after a fall at home, with right hip pain. He was diagnosed with right intertrochanteric femur fracture. These x-rays were reviewed extensively with the patient today. At this time, I would recommend undergoing surgical open reduction internal fixation for right hip hemiarthroplasty. Dr. Yue Anthony MD is in agreement with this plan of care. Extensive discussion was had as to the risk versus benefits of this procedure.Surgical risks versus benefits were discussed extensively here in the clinic today. Risk of surgery include, but are not limited to anesthesia risks, wound healing complications, infection, nerve/blood vessel or tendon injury, dislocation of prosthesis, acute blood loss, need for revision in the future, failure to relieve all pain and dislocation. Patient verbalized understanding of risks and benefits. All surgical questions were answered. Consents were signed. Plan will be for surgery to take place this evening. Patient has remained n.p.o. since 06/26/2024. We will plan to follow him in the postoperative phase until discharge and then in the clinic. Qualifiers: Encounter type: initial encounter Fracture alignment: displaced Fracture type: closed Qualified Code(s): S72.141A - Displaced intertrochanteric fracture of right femur, initial encounter for closed fracture (2) Fall at home: Qualifiers: Encounter type: initial encounter Qualified Code(s): W19.XXXA - Unspecified fall, initial encounter; Y92.009 - Unspecified place in unspecified non-institutional (private) residence as the place of occurrence of the external cause (3) Accelerated essential hypertension: (4) Diabetes mellitus: (5) BPH (benign prostatic hyperplasia): (6) Hyperlipidemia: Consult Attestations Medical Necessity Statement: Patient will be required to stay overnight, with expected care to cross 2 midnights, due to right hip fracture and need for surgical intervention, as well as medical clearance and discharge planning. Coding Level of Care Code Acute Code for Chg Fwd Diagnoses Closed displaced intertrochanteric fracture of right femur, initial encounter S72.141A Encounter type: initial encounter Fracture alignment: displaced Fracture type: closed Fall in home, initial encounter W19.XXXA; Y92.009 Encounter type: initial encounter Accelerated essential hypertension I10 Diabetes mellitus E11.9 BPH (benign prostatic hyperplasia) N40.0 Hyperlipidemia E78.5
[2024-06-27 16:19] LABS: Bilirubin Urine Negative (Negative); Blood Urine Negative (Negative); Glucose Urine UA 3+ (Normal); Ketones Urine 1+ (Negative); Leukocyte Esterase Urine Negative (Negative); Nitrate Urine Negative (Negative); Protein Urine 2+ (Negative); Specific Gravity, Urine 1.024 (1.005-1.030); Urine Appearance Clear (CLEAR); Urine Color Yellow (Yellow); Urobilinogen Urine 0.2 mg/dL (Negative)
[2024-06-27 16:27] LABS: Add Urine Microscopic? YES; Bacteria Urine None Seen /hpf; Hyaline Casts Urine 0.81 /lpf; RBC Urine 0-2 /hpf (0-2); Squamous Epithelial Cell Urine 0-5 /hpf (0-5); WBC Urine 0-5 /hpf (0-5)
[2024-06-27 16:47] LABS: Glucose Point of Care 124 mg/dL (70-110)
--- NOTE | 2024-06-27 16:57 | PC.NURSE ---
Patient left for surgery at 1714
[2024-06-27] MEDS: CELEcoxib 200 mg Capsule 400 MG PO (17:11)
[2024-06-27] MEDS: sodium chloride 0.9% 1,000 ML 30 ML IV (17:13)
[2024-06-27] MEDS: acetaminophen 1,000 MG/100 ML PIGGYBACK 400 MG IV ×2 (17:15→23:32)
--- NOTE | 2024-06-27 19:17 | W.PM.OPSUD ---
Surgery/Procedure H&P Update DATE OF PROCEDURE: June 27, 2024 DATE H&P PERFORMED: 06/26/24 H&P UPDATE INFORMATION: I have reviewed H&P completed within last 30 days, I have examined patient prior to procedure, No changes to prior documentation and H&P is in [facility] EMR on date indicated PLANNED PROCEDURE: Operation Date: 06/27/24 17:30 Proposed Procedures p Hemiarthroplasty Hip Bipolar Arthroplasty(Right) - Yue Anthony MD Related Problem List Diagnoses (1) Subcapital fracture of right hip:
[2024-06-27] MEDS: ceFAZolin 2,000 mg SDV 2000 MG IVP ×2 (19:54→23:27)
[2024-06-27] MEDS: tranexamic acid 1,000 mg/10mL SDV 1000 MG IV (20:42)
[2024-06-27] MEDS: ceFAZolin 1,000 mg SDV 1000 MG IRRIGATION (21:06)
[2024-06-27] MEDS: vancomycin 1,000 MG SDV 1000 MG XX (21:10)
--- NOTE | 2024-06-27 22:09 | PM.OP ---
Operative Report Date of procedure: June 27, 2024 Pre-op diagnosis: Right subcapital hip fracture, displaced and shortened Post-op diagnosis: Right subcapital hip fracture, displaced and shortened Post-op findings: Subcapital hip fracture right femur with femoral head displacement Procedure done: Right bipolar hip arthroplasty Implants: The Torrie hip system with a size 6 Accolade two 127 degree neck angle hip stem, a universal head bipolar component size 56 x 28 mm inner diameter with a 28 mm inner diameter +0 Biolox delta ceramic femoral head Specimens removed/disposition: Femoral head, disposed of Pathology: None Surgeon: Yue Anthony MD Biomedical Engineering Supervisor: [facility] operating room technicians Anesthesia: General (Intubated, ASA 3) Estimated blood loss (mL): 50 IV fluids (mL): 900 Urine output (mL): 150 Complications: None Findings: Hip was stable at 90 degrees of flexion with 80 degrees of internal rotation and 30 degrees of adduction. It was also stable to toe hang. It was stable to external rotation, and leg lengths appeared to be restored. Condition: stable Disposition: PACU (Then return to floor for postoperative rehabilitation and pain management) Brief History: This 78-year-old gentleman who is known to me from prior hip fracture on the opposite side and July 2019 presented to the emergency department after a fall at home. He was walking in his yard when he tripped over a stump root falling onto his right side. He was unable to get up and was brought to the emergency department after his returned home from work. This was approximately 2 hours. He was found to have a right subcapital hip fracture as well as superior and inferior pubic ramus fractures. He was admitted to the hospital under the hospitalist service with consultation to me for definitive care. Patient was seen in the preoperative holding area. Risks and complications were discussed with him. Consents were signed and questions were answered. Procedure: The patient was brought to the operating theater, and after undergoing adequate general intubated anesthesia, ASA 3, he was transferred to the operating room table. The patient was placed in the full lateral position and held in place with the pegboard. Patient's right lower extremity was draped free and was subsequently prepped and further draped free. A surgical pause was performed prior to commencement of the surgical procedure. During the surgical pause, we confirmed the site and side of surgery as well as availability of equipment. Additionally, we confirmed preoperative surgical markings as well as administration of IV Ancef 2 g given intraoperatively prior to the surgical procedure. X-rays were also reviewed during this time. Following the surgical pause, an incision was made centering over the greater trochanter continuing proximally and distally as necessary to allow access to the hip joint. Dissection continued through skin and soft tissue using scalpel. Hemostasis was obtained using electrocautery. Tensor fascia dale was identified and incised longitudinally. Sciatic nerve was identified and protected throughout the surgical procedure. A Charnley U retractor was placed with care being taken to protect the sciatic nerve during placement. The hip was internally rotated. Piriformis muscle was then identified, tagged, and subsequently incised from the posterior aspect of the hip joint. The remaining short external rotators were also incised. These were then elevated off the capsule and the capsule was entered in a T-type fashion. Each side of the capsule was then tagged. The proximal femur was brought into an appropriate position of the femoral neck osteotomy was accomplished. This was in appropriate position for placement of the prosthetic component. Femoral head was removed from the acetabulum utilizing a corkscrew. It was subsequently measured. The appropriate size trial was chosen. This was a size 55 mm or 56 mm. Size 56 mm trial fit nicely. A 55 mm was also trialed, but it seemed to small. Therefore size 56 mm was the chosen size for trial implantation. Femoral trigonometry teacher was then placed and attention was directed to the proximal femur. Initially, the proximal femur was addressed with a box chisel, and this was followed by a canal finder and subsequently broaches. The hip was broached to a size 6. Size 6 broach was noted to fit nicely and have good fit and fill. Therefore this was to be the chosen component. Trial reduction was accomplished with a 56 mm bipolar cup shell and a +0 mm femoral head. With this, the above-noted stabilities were accomplished. This was felt to be appropriate and therefore trial components were removed and the hip was irrigated. Acetabulum was evaluated for any loose bodies or other soft tissues requiring resection. We then prepared for implantation. The size 6 Accolade II 127? femoral stem was impacted into position. This was placed without difficulty. Onto this was placed the construct of the universal head bipolar component size 56 mm x 26 mm with a femoral head size 26 mm by +0 mm. This was placed onto the trunnion of the femoral component. It was impacted into position and pulled up on to assure that there was no dissociation. Once again the hip was irrigated and suctioned dry, and it was reduced. We then irrigated the hip further with 20 mL of Betadine mixed into 500 mL of normal saline. This was allowed to remain in the wound for approximately 3 minutes. It was then suctioned dry and irrigated with normal saline. This was suctioned dry again and closure was accomplished with 0 Vicryl in the capsular tissues followed by reattachment of the piriformis with 0 Vicryl. Additionally, the tensor was closed with 0 Vicryl in an interrupted fashion. This was followed by a #1 strata fix. Subcutaneous tissues were closed with 2-0 Monocryl strata fix. Skin was closed with 3-0 Monocryl strata fix. This was followed by Dermabond Prineo and an OpSite. Abduction pillow was placed. The patient was returned the Recovery Room in satisfactory condition where x-rays were obtained. There were no complications. The patient will be discharged to the floor for postoperative rehabilitation and pain management. Related Problem List Diagnoses (1) Subcapital fracture of right hip:
--- NOTE | 2024-06-27 22:17 | XRR_ITS ---
PROCEDURE INFORMATION: Exam: XR Pelvis Exam date and time: 06/27/2024 10:18 PM Age: 78 years old Clinical indication: Device placement; Other: Hip arthroplasty; Prior surgery; Surgery date: Post-operative (0-2 days); Additional info: Status post bipolar hip arthroplasty, right, low ap pelvis TECHNIQUE: Imaging protocol: Radiologic exam of the pelvis. Views: 1 or 2 view. COMPARISON: CR XR hip RT 2-3V wo/w pel* [id number] 06/26/2024 1:15 PM FINDINGS: Bones/joints: Bilateral hip arthroplasties. No acute fracture or dislocation. Soft tissues: Postoperative soft tissue swelling and emphysema in the right hip. XR/XR pelvis 1-2V* [id number] IMPRESSION: Bilateral hip arthroplasties.
--- NOTE | 2024-06-27 22:45 | ANE.PACU2 ---
Inpatient post-anesthesia follow up: Airway intact: Yes Vital signs: Temperature 97.7 F Pulse Rate 65 Respiratory Rate 18 Blood Pressure 145/58 Pulse Oximetry 93 Oxygen Delivery Me thod Room Air Oxygen Flow Rate 3 Fraction of Inspir ed Oxygen Hydration adequate: Yes Nausea and vomiting: No Pain level: 1 Mental status: Baseline
--- NOTE | 2024-06-27 23:00 | SUR.PHASEI ---
2255 Pt taken to room 257. VSS Nurse, Alla, checked surgical dressing,accepted patient without questions or concerns.
[2024-06-27 23:04] LABS: Glucose Point of Care 176 mg/dL (70-110)
[2024-06-28] VITALS (10 sets, daily range): BP systolic 113–165; BP diastolic 56–89; PULSE 56–90; RESP 14–19; TEMP 36.4–37.4; O2SAT 90–96
[2024-06-28] MEDS: tranexamic acid 1,000 MG/100 ML PREMIX 600 MG IV (00:24)
[2024-06-28] MEDS: acetaminophen 1,000 MG/100 ML PIGGYBACK 400 MG IV ×2 (06:13→17:02)
[2024-06-28] MEDS: ceFAZolin 2,000 mg SDV 2000 MG IVP ×2 (06:14→16:57)
[2024-06-28 06:35] LABS: Glucose Point of Care 178 mg/dL (70-110)
[2024-06-28] MEDS: oxyCODONE 5 mg IR Tab/Cap PO ×2 (09:53→16:58)
[2024-06-28] MEDS: CELEcoxib 200 mg Capsule PO (09:53)
[2024-06-28] MEDS: gabapentin 100 mg Capsule PO ×3 (09:53→21:38)
[2024-06-28] MEDS: calcium carbonate 500 mg Chew Tablet 1000 MG PO ×2 (09:53→16:59)
[2024-06-28] MEDS: metoprolol tartrate 50 mg Tablet 25 MG PO ×2 (09:54→17:00)
[2024-06-28] MEDS: multivitamin therapeutic Tablet 1 TAB PO (09:54)
[2024-06-28] MEDS: cholecalciferol (vitamin D3) 1,000 unit Tablet 1000 UNIT PO (09:54)
[2024-06-28] MEDS: amlodipine 5 mg Tablet PO (09:54)
[2024-06-28] MEDS: heparin 5,000 unit/mL INJ 1 mL 5000 UNIT SUBCUT ×2 (09:54→21:40)
[2024-06-28] MEDS: sennosides-docusate Tablet 2 TAB PO ×2 (09:54→16:59)
[2024-06-28] MEDS: iron polysaccharide complex 150 mg Capsule PO ×2 (09:55→17:00)
[2024-06-28] MEDS: aspirin 81 mg EC Tablet PO (09:55)
[2024-06-28] MEDS: insulin lispro 100 unit/1 mL SUBCUT ×4 (09:55→21:40)
--- NOTE | 2024-06-28 09:55 | PC.SOCIAL ---
IMM Update pg 2 of IMM Updated and reviewed w/ patient. Copy provided and copy dated, initialed and placed in chart.
[2024-06-28 11:15] LABS: Glucose Point of Care 394 mg/dL (70-110)
--- NOTE | 2024-06-28 11:38 | P.PN_ITS ---
Subjective 2 Subjective: Seen this morning. Status post surgery, postop day 1. No acute events overnight. Will be working with physical therapy today. Vitals/I&O/Wt Last Vital Signs Temp 99.3 F 06/28/24 08:00 Pulse 82 06/28/24 08:00 Resp 14 06/28/24 09:53 BP 165/89 06/28/24 08:00 Pulse Ox 90 06/28/24 08:00 O2 Del Method Room Air 06/28/24 08:00 O2 Flow Rate 3 06/27/24 22:47 06/27/24 06/28/24 06/28/24 22:59 06:59 14:59 Intake Total 250 / 250 1300 / 1550 750 / 750 Output Total 700 / 1300 300 / 1600 Balance -450 / -1050 1000 / -50 750 / 750 Weight last 48 hrs Weight 105.829 kg Weight 103.238 kg Weight 104.508 kg Weight 102.058 kg Physical Exam 2 Narrative: General: Alert oriented x3, appears comfortable at this time HEENT: Normocephalic, atraumatic, EOMI, breathing room air. Cardio: Regular rate rhythm, normal S1-S2, Respiratory: CTA bilaterally no wheezes no rhonchi present. GI: Abdomen soft, nontender, nondistended, bowel sounds + Behavior: Appropriate and cooperative Extremities: Surgical bandage intact and no drainage noted. Mild pain with range of motion as expected status post surgery. Urinary Catheter Management: Coude: Cath Placed During This Visit: yes, but has since been removed by the nurse Reason for Continuing Indwelling Catheter: Perioperative Use in Selected Surgeries Urinary Catheter Date of Insertion: 06/27/24 Urinary Catheter Time of Insertion: 20:05 Date Urinary Catheter Removed: 06/28/24 Time Urinary Catheter Discontinued: 06:28 Data 06/27/24 05:07 06/27/24 05:07 A&P Assessment and plan (1) Accelerated essential hypertension: (2) Diabetes mellitus: (3) BPH (benign prostatic hyperplasia): (4) Fracture of femoral neck, right: Qualifiers: Encounter type: initial encounter Fracture type: closed Qualified Code(s): S72.001A - Fracture of unspecified part of neck of right femur, initial encounter for closed fracture (5) Hyperlipidemia: Plan #Right displaced intertrochanteric hip fracture #Diabetes mellitus insulin-dependent #Hypertension #GERD #Gout #Hyperlipidemia ? Baseline EKG reviewed. No acute changes suggest acute coronary ischemia patient does have a right bundle branch block which is old. Patient denies any symptoms of chest pain shortness of breath at this time. He denies any palpitations. Denies any syncopal or presyncopal episodes. Last echo is from November 2022 showing normal EF 55% with grade 1 diastolic dysfunction. ? It was a purely mechanical fall as per patient. Did not hit his head or lose consciousness. ANO x 3 ? CBC CMP INR magnesium pending at this time ? Official read of hips x-rays also pending at this time ? Chest x-ray read is pending at this time however upon my own interpretation no evidence of acute pneumonia. ? Vitals are stable at this time ? Patient is on room air saturating 94%. ? Will admit to medicine floor for preop evaluation. ? Orthopedic surgery consulted. Case was discussed with Dr. Antohny by ER doctor. She will see patient in consultation. ? Keep n.p.o. at midnight for potential surgery in AM. ? Continue home amlodipine, aspirin, atorvastatin, citalopram, finasteride, hydrochlorothiazide. Will hold off on losartan at this time. ? Continue metoprolol tartrate 50 twice daily ? Hold metformin ? Placed on moderate dose intensity insulin sliding scale ? Dose reduce glargine to 30 units at bedtime. Full code DVT prophylaxis: Heparin subcu twice daily. 06/28/2024 -Postop day 1 status post right hip fracture repair. ? Will work with physical therapy today ? Patient requesting snf placement for rehab. ? Continue home medications.?Restart losartan. ? Continue cardiac diabetic diet. ? Switch to Lantus 55 units at bedtime which is his home dose. Attestations 2 Medical Necessity Statement*: Greater than 2 midnight stay for management of right hip fracture. Diagnoses Accelerated essential hypertension I10 Diabetes mellitus E11.9 BPH (benign prostatic hyperplasia) N40.0 Fracture of femoral neck, right S72.001A Encounter type: initial encounter Fracture type: closed Hyperlipidemia E78.5
[2024-06-28] MEDS: chlorhexidine gluconate 0.12% Btl 473 mL 30 ML MUCOUS MEM ×3 (13:58→21:42)
[2024-06-28 15:42] LABS: Basophils % 0.1 %; Eosinophils % 0.2 %; Hematocrit 36.3 % (37-53); Lymphocytes # 1.1 10^3/uL (0.8-4.8); Lymphocytes % 7.4 %; Mean Corpuscular HGB Conc 32.8 g/dL (30-55); Mean Corpuscular Hemoglobin 31.7 pg (27-33); Mean Corpuscular Volume 96.8 fl (82-101); Mean Platelet Volume 10.9 fL (7.4-10.4); Monocytes # 1.5 10^3/uL (0.2-0.9); Monocytes % 10.3 %; Neutrophils # 11.94 10^3/uL (1.8-7.7); Neutrophils % 81.5 %; Nucleated Red Blood Cells % 0 %; Platelet Count 160 10^3/cmm (157-399); Red Blood Count 3.75 10^6/uL (3.85-5.65); Red Cell Distribution Width 13.3 % (12.1-15.1); White Blood Count 14.67 10^3/uL (3.29-11.43)
--- NOTE | 2024-06-28 15:43 | P.PN_ITS ---
Subjective 2 Subjective: The patient underwent a bipolar hip arthroplasty to the right hip for subcapital displaced hip fracture. Previously, the patient underwent a similar procedure in 2019 to the opposite left hip. He did well following this. And today, he is seen in his room and is sitting up in a chair. He has concerns about safety at home, and wishes to have skilled facility rehabilitation. Medications: Reviewed: Yes Vitals/I&O/Wt Last Vital Signs Temp 98.3 F 06/28/24 11:38 Pulse 90 06/28/24 14:30 Resp 16 06/28/24 14:30 BP 155/61 06/28/24 11:38 Pulse Ox 96 06/28/24 14:30 O2 Del Method Room Air 06/28/24 14:30 O2 Flow Rate 3 06/27/24 22:47 06/28/24 06/28/24 06/28/24 06:59 14:59 22:59 Intake Total 1300 / 1550 1470 / 1470 Output Total 300 / 1600 650 / 650 Balance 1000 / -50 820 / 820 Weight last 48 hrs Weight 233 lb 5 oz Weight 227 lb 9.6 oz Weight 230 lb 6.4 oz Physical Exam 2 Const: COMMON NORMALS: no acute distress, average body habitus, patient oriented x3 and alert GENERAL APPEARANCE: cooperative and comfortable O RIENTATION/CONSCIOUSNESS: Yes awake HENMT: COMMON NORMALS: normocephalic and atraumatic HEAD & SCALP: n ormocephalic and atraumatic Eye: GENERAL EYE: appearance normal, both eyes and all related structures Chest: COMMONS NORMALS: normal inspection of the chest Resp: COMMON NORMALS: normal respiratory effort EFFORT & INSPECTION: Yes able to speak in complete sentences and Yes symmetric chest movement Extremity: RIGHT LOWER EXTREMITY: Yes hip joint (Patient is sitting comfortably in a chair. He has no complaints.) Right hip: Yes neurovascular exam (Intact distal with no evidence of DVT.) Neuro: COMMON NORMALS: patient oriented x3 SENSORIUM/ORIENTATION: Yes alert Psych: COMMON NORMALS: mental status grossly normal APPEARANCE: Yes grossly normal ATTITUDE: Yes calm and Yes engaged ATTENTION/CONCENTRATION: Yes attention grossly intact Skin: COMMON NORMALS: no rashes or lesions noted GENERAL SKIN EXAM: no rashes or lesions noted Urinary Catheter Management: Coude: Cath Placed During This Visit: yes, but has since been removed by the nurse Reason for Continuing Indwelling Catheter: Perioperative Use in Selected Surgeries Urinary Catheter Date of Insertion: 06/27/24 Urinary Catheter Time of Insertion: 20:05 Date Urinary Catheter Removed: 06/28/24 Time Urinary Catheter Discontinued: 06:28 Data 06/28/24 15:05 06/28/24 15:05 A&P Assessment and plan (1) Subcapital fracture of right hip: Patient was admitted with a right subcapital hip fracture. Previously, he underwent similar surgical intervention secondary to a left subcapital hip fracture in 2019. The patient fell while at home with no other reason for his injury. He has been optimized by the medical service for surgical intervention. Risks and complications of the surgical procedure were discussed with the patient. Consents were signed preoperatively, and questions were answered at that time. Last evening, the patient underwent a right bipolar hip arthroplasty. This was well-tolerated. He worked with physical therapy today, but it is felt that he would benefit from acute rehabilitation to best return him to his home safely. This was discussed with the patient, and insurance has approved him to proceed with admission to [facility] to optimize his rehab. He will follow-up with me in the office in 2 to 3 weeks. He will not require staple removal as a subcuticular suture was placed at the time of surgery. Qualifiers: Encounter type: initial encounter Fracture type: closed Qualified Code(s): S72.011A - Unspecified intracapsular fracture of right femur, initial encounter for closed fracture (2) History of hemiarthroplasty of left hip: Attestations 2 Medical Necessity Statement*: Patient requires inpatient hospitalization for medical stabilization and therapies following hip fracture Coding Level of Care Code Acute Code for Chg Fwd Diagnoses Closed subcapital fracture of right femur, initial encounter S72.011A Encounter type: initial encounter Fracture type: closed History of hemiarthroplasty of left hip Z96.642
[2024-06-28 16:03] LABS: Anion Gap 17.8 (5-19); Blood Urea Nitrogen 28 mg/dL (8-23); Calcium 7.7 mg/dL (8.5-10.5); Carbon Dioxide 22 mmol/L (22-29); Chloride 98 mmol/L (98-107); Creatinine Clr Calc Pharmacy 58.8812; Glucose 333 mg/dL (65-115); Osmolality Calculated 297 mOsm/kg (285-295); Potassium 3.8 mmol/L (3.5-5.1); Sodium 134 mmol/L (136-145)
[2024-06-28] MEDS: tamsulosin 0.4 mg Capsule 0.8 MG PO (16:58)
[2024-06-28] MEDS: pantoprazole 40 mg SDV IVP (16:58)
[2024-06-28] MEDS: atorvastatin 40 mg Tablet PO (16:59)
[2024-06-28] MEDS: citalopram 20 mg Tablet PO (17:01)
[2024-06-28 17:08] LABS: Glucose Point of Care 302 mg/dL (70-110)
[2024-06-28 21:15] LABS: Glucose Point of Care 248 mg/dL (70-110)
[2024-06-28] MEDS: acetaminophen 500 mg Tablet 1000 MG PO (21:38)
[2024-06-28] MEDS: insulin glargine 100 units/1 mL 50 UNIT SUBCUT (21:39)
[2024-06-29] VITALS (7 sets, daily range): BP systolic 111–147; BP diastolic 48–78; PULSE 56–67; RESP 16–18; TEMP 36.4–36.7; O2SAT 93–97
[2024-06-29] MEDS: acetaminophen 500 mg Tablet 1000 MG PO (05:38)
[2024-06-29 06:21] LABS: SARS Covid-2 Antigen Negative (Negative)
[2024-06-29 06:40] LABS: Glucose Point of Care 297 mg/dL (70-110)
[2024-06-29] MEDS: cholecalciferol (vitamin D3) 1,000 unit Tablet 1000 UNIT PO (08:20)
[2024-06-29] MEDS: metoprolol tartrate 50 mg Tablet 25 MG PO (08:20)
[2024-06-29] MEDS: multivitamin therapeutic Tablet 1 TAB PO (08:20)
[2024-06-29] MEDS: amlodipine 5 mg Tablet PO (08:21)
[2024-06-29] MEDS: calcium carbonate 500 mg Chew Tablet 1000 MG PO (08:21)
[2024-06-29] MEDS: sennosides-docusate Tablet 2 TAB PO (08:21)
[2024-06-29] MEDS: iron polysaccharide complex 150 mg Capsule PO (08:21)
[2024-06-29] MEDS: heparin 5,000 unit/mL INJ 1 mL 5000 UNIT SUBCUT (08:21)
[2024-06-29] MEDS: aspirin 81 mg EC Tablet PO (08:21)
[2024-06-29] MEDS: gabapentin 100 mg Capsule PO (08:21)
[2024-06-29] MEDS: CELEcoxib 200 mg Capsule PO (08:21)
[2024-06-29] MEDS: insulin lispro 100 unit/1 mL SUBCUT ×2 (08:22→11:37)
[2024-06-29 09:50] LABS: Basophils % 0.2 %; Eosinophils # 0.5 10^3/uL (0.0-0.8); Eosinophils % 5.2 %; Hematocrit 33.1 % (37-53); Lymphocytes # 1.5 10^3/uL (0.8-4.8); Lymphocytes % 14.1 %; Mean Corpuscular Hemoglobin 31.3 pg (27-33); Mean Corpuscular Volume 97.6 fl (82-101); Mean Platelet Volume 10.9 fL (7.4-10.4); Monocytes # 0.9 10^3/uL (0.2-0.9); Monocytes % 8.6 %; Neutrophils # 7.43 10^3/uL (1.8-7.7); Neutrophils % 71.5 %; Nucleated Red Blood Cells % 0 %; Platelet Count 143 10^3/cmm (157-399); Red Blood Count 3.39 10^6/uL (3.85-5.65); Red Cell Distribution Width 13.5 % (12.1-15.1); White Blood Count 10.39 10^3/uL (3.29-11.43)
[2024-06-29 10:04] LABS: Anion Gap 13.6 (5-19); Blood Urea Nitrogen 30 mg/dL (8-23); Calcium 7.3 mg/dL (8.5-10.5); Carbon Dioxide 21 mmol/L (22-29); Chloride 100 mmol/L (98-107); Creatinine Clr Calc Pharmacy 59.0163; Glucose 320 mg/dL (65-115); Osmolality Calculated 290 mOsm/kg (285-295); Potassium 3.6 mmol/L (3.5-5.1); Sodium 131 mmol/L (136-145)
[2024-06-29 11:27] LABS: Glucose Point of Care 264 mg/dL (70-110)
--- NOTE | 2024-06-29 12:53 | PM.DCS ---
Discharge Providers Date of Admission: 06/26/24 15:38 Date of Discharge: June 29, 2024 Attending Provider at Admission: Janie Cee MD Attending Provider at Discharge: Janie Cee MD Primary Care Provider: Mili Soliman MD Diagnoses at Discharge Discharge Diagnosis (1) Subcapital fracture of right hip: Status: Acute Qualifiers: Encounter type: initial encounter Fracture type: closed Qualified Code(s): S72.011A - Unspecified intracapsular fracture of right femur, initial encounter for closed fracture (2) History of hemiarthroplasty of left hip: Status: Resolved Reason for Visit Reason for Visit: Fall, RT hip pain Hospital Course Hospital Course Patient presented after a fall which was mechanical in nature. He was diagnosed with right hip fracture and underwent surgical fixation. Operative day for 06/27/2024. He is doing well postop. He will be discharged to rehab today. He will be given Eliquis for DVT prophylaxis. Physical Exam Narrative: General: Alert oriented x3, appears comfortable at this time HEENT: Normocephalic, atraumatic, EOMI, breathing room air. Cardio: Regular rate rhythm, normal S1-S2, Respiratory: CTA bilaterally no wheezes no rhonchi present. GI: Abdomen soft, nontender, nondistended, bowel sounds + Behavior: Appropriate and cooperative Extremities: Surgical bandage intact and no drainage noted. Mild pain with range of motion as expected status post surgery. Urinary Catheter Management: Coude: Cath Placed During This Visit: yes, but has since been removed by the nurse Reason for Continuing Indwelling Catheter: Perioperative Use in Selected Surgeries Urinary Catheter Date of Insertion: 06/27/24 Urinary Catheter Time of Insertion: 20:05 Date Urinary Catheter Removed: 06/28/24 Time Urinary Catheter Discontinued: 06:28 Discharge Data Studies Completed and Pending Completed Studies During Hospitalization Category Date Time Status XR chest 1V portable [id number] Stat Exams 06/26/24 13:04 Completed XR hip RT 2-3V wo/w pel* [id number] Stat Exams 06/26/24 13:04 Completed XR pelvis 1-2V* [id number] Routine Exams 06/27/24 22:17 Completed Radiology Impressions Chest X-Ray 06/26/24 13:04 IMPRESSION: No acute abnormality. Hip/Pelvis X-Ray 06/26/24 13:04 IMPRESSION: Right hip fracture as above. Pelvis X-Ray 06/27/24 22:17 IMPRESSION: Bilateral hip arthroplasties. Laboratory Results WBC 10.39 10^3/uL (3.29-11.43) 06/29/24 09:34 RBC 3.39 10^6/uL (3.85-5.65) L 06/29/24 09:34 Hgb 10.60 g/dL (11.27-16.99) L 06/29/24 09:34 Hct 33.1 % (37-53) L 06/29/24 09:34 MCV 97.6 fl (82-101) 06/29/24 09:34 MCH 31.3 pg (27-33) 06/29/24 09:34 MCHC 32.0 g/dL (30-55) 06/29/24 09:34 RDW 13.5 % (12.1-15.1) 06/29/24 09:34 Plt Count 143 10^3/cmm (157-399) L 06/29/24 09:34 MPV 10.9 fL (7.4-10.4) H 06/29/24 09:34 Neut % (Auto) 71.5 % 06/29/24 09:34 Lymph % (Auto) 14.1 % 06/29/24 09:34 Prentiss % (Auto) 8.6 % 06/29/24 09:34 Eos % (Auto) 5.2 % 06/29/24 09:34 Baso % (Auto) 0.2 % 06/29/24 09:34 Neut # (Auto) 7.43 10^3/uL (1.8-7.7) 06/29/24 09:34 Lymph # (Auto) 1.5 10^3/uL (0.8-4.8) 06/29/24 09:34 Prentiss # (Auto) 0.9 10^3/uL (0.2-0.9) 06/29/24 09:34 Eos # (Auto) 0.5 10^3/uL (0.0-0.8) 06/29/24 09:34 Baso # (Auto) 0.0 10^3/uL (0.0-0.1) 06/29/24 09:34 Nucleated RBC % (auto) 0 % 06/29/24 09:34 Nucleated RBCs # 0.0 /100WBC 06/29/24 09:34 PT 14.10 SECONDS (12.1-14.9) 06/27/24 05:07 INR 1.06 (0.8-1.2) 06/27/24 05:07 Sodium 131 mmol/L (136-145) L 06/29/24 09:34 Potassium 3.6 mmol/L (3.5-5.1) 06/29/24 09:34 Chloride 100 mmol/L (98-107) 06/29/24 09:34 Carbon Dioxide 21 mmol/L (22-29) L 06/29/24 09:34 Anion Gap 13.6 (5-19) 06/29/24 09:34 BUN 30 mg/dL (8-23) H 06/29/24 09:34 Creatinine 1.3 mg/dL (0.7-1.2) H 06/29/24 09:34 GFR Calculation Not Reportable 06/29/24 09:34 Glucose 320 mg/dL (65-115) H 06/29/24 09:34 POC Glucose 264 mg/dL (70-110) H 06/29/24 11:23 Calculated Osmolality 290 mOsm/kg (285-295) 06/29/24 09:34 Calcium 7.3 mg/dL (8.5-10.5) L 06/29/24 09:34 Magnesium 1.3 mg/dL (1.7-2.3) L 06/27/24 05:07 Total Bilirubin 0.6 mg/dL (0.15-1.2) 06/27/24 05:07 AST 14 U/L (0-40) 06/27/24 05:07 ALT 10 U/L (0-41) 06/27/24 05:07 Alkaline Phosphatase 63 U/L (40-130) 06/27/24 05:07 Creatine Kinase 119 U/L (39-308) 06/26/24 13:56 Total Protein 5.4 g/dL (6.6-8.7) L 06/27/24 05:07 Albumin 3.4 g/dL (3.5-5.2) L 06/27/24 05:07 Globulin 2.0 g/dL (1.3-4.6) 06/27/24 05:07 Urine Color Yellow (Yellow) 06/27/24 15:38 Urine Appearance Clear (CLEAR) 06/27/24 15:38 Urine pH 5.0 (5-7) 06/27/24 15:38 Ur Specific [place] 1.024 (1.005-1.030) 06/27/24 15:38 Urine Protein 2+ (Negative) A 06/27/24 15:38 Urine Glucose (UA) 3+ (Normal) H 06/27/24 15:38 Urine Ketones 1+ (Negative) H 06/27/24 15:38 Urine Blood Negative (Negative) 06/27/24 15:38 Urine Nitrate Negative (Negative) 06/27/24 15:38 Urine Bilirubin Negative (Negative) 06/27/24 15:38 Urine Urobilinogen 0.2 mg/dL (Negative) 06/27/24 15:38 Ur Leukocyte Esterase Negative (Negative) 06/27/24 15:38 Urine RBC 0-2 /hpf (0-2) 06/27/24 15:38 Urine WBC 0-5 /hpf (0-5) 06/27/24 15:38 Ur Squamous Epith Cells 0-5 /hpf (0-5) 06/27/24 15:38 Amorphous Sediment Not Reportable 06/27/24 15:38 Urine Bacteria None seen /hpf (NONE) 06/27/24 15:38 Hyaline Casts 0.81 /lpf 06/27/24 15:38 SARS-CoV-2 Ag (Rapid) Negative (Negative) 06/29/24 05:42 Vitals Last Vital Signs Temp 97.7 F 06/29/24 12:00 Pulse 62 06/29/24 12:00 Resp 18 06/29/24 12:00 BP 139/63 06/29/24 12:00 Pulse Ox 94 06/29/24 12:00 O2 Del Method Room Air 06/29/24 12:00 O2 Flow Rate 3 06/27/24 22:47 Discharge Plan Discharge Patient Disposition: Xfer SNF Condition: Stable Prescriptions: New polysaccharide iron complex [Ferrex 150] 150 mg iron Capsule 150 mg PO BIDWM Qty: 30 0RF multivitamin with folic acid [Thera] 400 mcg Tablet 1 tab PO DAILY Qty: 30 0RF sennosides-docusate sodium [Stool Softener-Laxative] 8.6-50 mg Tablet 2 tab PO BID PRN (Reason: constipation) Qty: 20 0RF Eliquis 2.5 mg tablet 2.5 mg PO BID 30 Days Qty: 60 0RF hydrocodone-acetaminophen 5-325 mg tablet 1 tab PO Q6H PRN (Reason: pain) Qty: 20 0RF Continued atorvastatin 40 mg tablet 40 mg PO QPM metformin 500 mg tablet extended release 24 hr 500 mg PO BID insulin lispro [Humalog U-100 Insulin] 100 unit/mL solution See Rx Instructions .ROUTE .COMPLEX Rx Instructions: Take 1 to 15 units by subcutaneous injection twice daily per sliding scale. citalopram 20 mg tablet 20 mg PO QPM amlodipine 5 mg tablet 5 mg PO QAM hydrochlorothiazide 25 mg tablet 25 mg PO QAM aspirin [Adult Low Dose Aspirin] 81 mg tablet,delayed release (DR/EC) 81 mg PO QAM calcium carbonate 600 mg calcium (1,500 mg) tablet 600 mg PO QPM multivitamin Tablet 1 tab PO QAM tamsulosin 0.4 mg capsule 0.8 mg PO QPM allopurinol 300 mg tablet 300 mg PO QAM gabapentin 100 mg capsule 100 mg PO TID cholecalciferol (vitamin D3) [Vitamin D3] 25 mcg (1,000 unit) tablet 3,000 unit PO QPM (DME) Hinged Knee Brace See Rx Instructions .Route .MEDSUPPLY Qty: 1 0RF Rx Instructions: As directed (DME) physical therapy See Rx Instructions .Route .MEDSUPPLY Qty: 1 0RF Rx Instructions: Please schedule for Eval and Treat. Patient prefers the [place] location. (DME) Diabetic Shoes with 3 Accomodative Inserts See Rx Instructions .Route .MEDSUPPLY Qty: 1 0RF Rx Instructions: As directed (DME) Night Splint to the right See Rx Instructions .Route .MEDSUPPLY Qty: 1 0RF Rx Instructions: As directed losartan 50 mg tablet 50 mg PO QPM insulin glargine [Lantus Solostar U-100 Insulin] 100 unit/mL (3 mL) Insulin Pen 55 unit SUBCUT QPM potassium gluconate 600 mg (99 mg) Tablet 600 mg PO DAILY finasteride 5 mg tablet 5 mg PO QAM Changed metoprolol tartrate 50 mg tablet 25 mg PO BID Qty: 20 0RF Held Jardiance 10 mg tablet 10 mg PO DAILY Hold Instructions: hold till seen by pcp Discharge Orders: Discharge Order (Routine); Ordered 06/29/24 Ordered By: Janie Cee Referrals: [facility] [Outside] Mili Soliman MD [Primary Care Provider] - Yue Anthony MD [Physician] - 3 weeks Discharge Diet: Cardiac and Diabetic Discharge Activity: Increase activity as tolerated, Use walker/crutches as instructed and As per PT/OT instructions Patient Instructions: Apixaban (By mouth) (Eliquis), Fall Prevention for Older Adults (DC), Acute Wound Care (DC), Precautions after Total Joint Replacement Surgery (DC), Joint Replacement Surgery (DC), Opioid Safety, Post Anesthesia Care Activity Restrictions/Additional Instructions: Posterior precautions to right hip. Weightbearing as tolerated. Physical therapy to instruct in gait training, range of motion, and strengthening. Ice to hip as needed. Maintain dressing until it comes off on its own, or remove it at approximately the 2-week point. Follow-up in my office at 3 weeks. Discharge Attestations Time Spent in Discharge Care*: greater than 30 min Quality Metrics Clinical Quality Measures [ No reported AMI, CVA or VTE this stay] Coding Level of Care Code Acute Code for [facility] Fwd Diagnoses Closed subcapital fracture of right femur, initial encounter S72.011A Encounter type: initial encounter Fracture type: closed History of hemiarthroplasty of left hip Z96.642
--- NOTE | 2024-06-29 13:40 | P.PN_ITS ---
Subjective 2 Subjective: The patient underwent a bipolar hip arthroplasty to the right hip for subcapital displaced hip fracture. Previously, the patient underwent a similar procedure in 2019 to the opposite left hip. He did well following this. Patient is ready for discharge to custodial. Medications: Reviewed: Yes Vitals/I&O/Wt Last Vital Signs Temp 97.7 F 06/29/24 12:00 Pulse 62 06/29/24 12:00 Resp 18 06/29/24 12:00 BP 139/63 06/29/24 12:00 Pulse Ox 94 06/29/24 12:00 O2 Del Method Room Air 06/29/24 12:00 O2 Flow Rate 3 06/27/24 22:47 06/28/24 06/29/24 06/29/24 22:59 06:59 14:59 Intake Total 425 / 1895 960 / 960 Output Total 450 / 1100 600 / 600 Balance 425 / 1245 -450 / 795 360 / 360 Weight last 48 hrs Weight 234 lb 7 oz Weight 233 lb 5 oz Physical Exam 2 Const: COMMON NORMALS: no acute distress, average body habitus, patient oriented x3 and alert GENERAL APPEARANCE: cooperative and comfortable O RIENTATION/CONSCIOUSNESS: Yes awake HENMT: COMMON NORMALS: normocephalic and atraumatic HEAD & SCALP: n ormocephalic and atraumatic Eye: GENERAL EYE: appearance normal, both eyes and all related structures Chest: COMMONS NORMALS: normal inspection of the chest Resp: COMMON NORMALS: normal respiratory effort EFFORT & INSPECTION: Yes able to speak in complete sentences and Yes symmetric chest movement Extremity: NARRATIVE EXTREMITY EXAM: Patient is weightbearing as tolerated on his right lower extremity. When he is sitting or laying down, he has little pain. When he gets up from a seated position, his pain increases. Neuro: COMMON NORMALS: patient oriented x3 SENSORIUM/ORIENTATION: Yes alert Psych: COMMON NORMALS: mental status grossly normal APPEARANCE: Yes grossly normal ATTITUDE: Yes calm and Yes engaged ATTENTION/CONCENTRATION: Yes attention grossly intact Skin: COMMON NORMALS: no rashes or lesions noted GENERAL SKIN EXAM: no rashes or lesions noted Urinary Catheter Management: Coude: Cath Placed During This Visit: yes, but has since been removed by the nurse Reason for Continuing Indwelling Catheter: Perioperative Use in Selected Surgeries Urinary Catheter Date of Insertion: 06/27/24 Urinary Catheter Time of Insertion: 20:05 Date Urinary Catheter Removed: 06/28/24 Time Urinary Catheter Discontinued: 06:28 Data 06/29/24 09:34 06/29/24 09:34 A&P Assessment and plan (1) Subcapital fracture of right hip: Patient was admitted with a right subcapital hip fracture. Previously, he underwent similar surgical intervention secondary to a left subcapital hip fracture in 2019. The patient fell while at home with no other reason for his injury. He has been optimized by the medical service for surgical intervention. Risks and complications of the surgical procedure were discussed with the patient. Consents were signed preoperatively, and questions were answered at that time. The patient tolerated his right bipolar hip arthroplasty. He has worked with physical therapy, but he is still tentative in his activities. He understands hip precautions from having prior left bipolar hip arthroplasty. He will follow-up with me in the office in approximately 3 weeks. Questions were answered when he is seen in his room. Qualifiers: Encounter type: initial encounter Fracture type: closed Qualified Code(s): S72.011A - Unspecified intracapsular fracture of right femur, initial encounter for closed fracture (2) History of hemiarthroplasty of left hip: Attestations 2 Medical Necessity Statement*: Per hospitalist team Coding Level of Care Code Acute Code for [facility] Fwd Diagnoses Closed subcapital fracture of right femur, initial encounter S72.011A Encounter type: initial encounter Fracture type: closed History of hemiarthroplasty of left hip Z96.642
== END 2024-06-29 14:27 | disposition skilled nursing facility (03) | DRG 522 ==
LOC: ER 15:37 → MEDSURG 15:38
PROVIDERS: Emergency Medicine; Specialist; Admitting Provider Internal Medicine; Emergency Provider Physician Assistant; PCP Internal Medicine; Visit Provider Internal Medicine
PROC: 0SRR0JZ Replacement of Right Hip Joint, Femoral Surface with Synthetic Substitute, Open Approach (ICD-10-PCS; CPT 27125; principal; 2024-06-27 17:00)
DX: S72.011A Unspecified intracapsular fracture of right femur, initial encounter for closed fracture (principal); E78.5 Hyperlipidemia, unspecified; E11.9 Type 2 diabetes mellitus without complications; I10 Essential (primary) hypertension; M10.9 Gout, unspecified; M17.11 Unilateral primary osteoarthritis, right knee; N40.0 Benign prostatic hyperplasia without lower urinary tract symptoms; K21.9 Gastro-esophageal reflux disease without esophagitis; Z87.442 Personal history of urinary calculi; W01.0XXA Fall on same level from slipping, tripping and stumbling without subsequent striking against object, initial encounter; Y92.096 Garden or yard of other non-institutional residence as the place of occurrence of the external cause; Z96.642 Presence of left artificial hip joint; Z79.82 Long term (current) use of aspirin; Z79.84 Long term (current) use of oral hypoglycemic drugs; Z79.4 Long term (current) use of insulin
CPT/HCPCS: 36415; 36416; 51702; 71045; 72170; 73502; 80048; 80053; 81001; 82550; 82962; 83735; 85025; 85610; 87426; 93005; 94664; 96361; 96372; 96374; 97110; 97116; 97161; 97165; 97530; 99285; C1776; J0131; J0690; J1100; J1644; J1815; J2270; J2405; J2470; J2704; J3010; J3370; J3475; J3490; J7030

== ENCOUNTER → 2024-07-15 12:52 | Outpatient (BNVA) | payer MEDICARE, SELFPAY | PROVIDERS: PCP Internal Medicine; Visit Provider Nurse Practitioner | DX: Z96.641 Presence of right artificial hip joint; S72.011D Unspecified intracapsular fracture of right femur, subsequent encounter for closed fracture with routine healing; X58.XXXD Exposure to other specified factors, subsequent encounter | CPT/HCPCS: 73502; 99024 ==

== ENCOUNTER → 2024-08-26 14:26 | Outpatient (BNVA) | payer MEDICARE, SELFPAY | PROVIDERS: PCP Internal Medicine; Visit Provider Nurse Practitioner | DX: Z96.641 Presence of right artificial hip joint; S72.011D Unspecified intracapsular fracture of right femur, subsequent encounter for closed fracture with routine healing; X58.XXXD Exposure to other specified factors, subsequent encounter; M54.31 Sciatica, right side | CPT/HCPCS: 73502; 99024 ==

== ENCOUNTER 2024-09-03 14:06 | Outpatient (CLI) | payer MEDICARE, SELFPAY ==
--- NOTE | 2024-09-03 14:07 | XR_ITS ---
WS: [id number] SCREENING DEXA SCAN [employer] [facility] CLINICAL INFORMATION: HX OF TRAUMATIC HIP FRACTURE COMPARISON: None. FINDINGS: The L1-L4 bone mineral density measures 1.427 g/cm2. This corresponds to a T score score of 1.7 and Z score of 1.7. Left forearm bone mineral density measures 1.08. This corresponds to a T score of 1.0 and Z score of 2.1. RIGHT forearm bone mineral density measures 1.07. This corresponds to a T score of 0.8 and Z score of 2.0. XR/XR DEXA axial skeleton* [id number] IMPRESSION: Normal bone mineralization lumbar spine. Normal bone mineralization both forear ms.
== END 2024-09-03 14:07 | disposition home or self-care (01) ==
LOC: RAD 14:06
PROVIDERS: PCP Internal Medicine; Visit Provider Internal Medicine
DX: M84.68XA Pathological fracture in other disease, other site, initial encounter for fracture (principal); Z87.81 Personal history of (healed) traumatic fracture
CPT/HCPCS: 77080

== ENCOUNTER → 2024-09-10 11:18 | Outpatient (BNVA) | payer MEDICARE, SELFPAY | PROVIDERS: PCP Internal Medicine; Visit Provider Nurse Practitioner Family | DX: L91.8 Other hypertrophic disorders of the skin (principal); L57.8 Other skin changes due to chronic exposure to nonionizing radiation; Z08 Encounter for follow-up examination after completed treatment for malignant neoplasm; Z85.828 Personal history of other malignant neoplasm of skin; L57.0 Actinic keratosis | CPT/HCPCS: 17000; 99214 ==

== ENCOUNTER 2024-09-21 06:00 | Outpatient (RCR) | payer MEDICARE, SELFPAY | END 2024-10-18 23:59 | disposition home or self-care (01) | LOC: APT 06:00 | PROVIDERS: Visit Provider Nurse Practitioner | DX: Z47.89 Encounter for other orthopedic aftercare (principal) | CPT/HCPCS: 97110; 97112; 97161; 97530 ==

== ENCOUNTER → 2024-09-30 13:44 | Outpatient (BNVA) | payer MEDICARE, SELFPAY | PROVIDERS: PCP Internal Medicine; Visit Provider Nurse Practitioner | DX: M25.551 Pain in right hip (principal); E11.8 Type 2 diabetes mellitus with unspecified complications; L60.3 Nail dystrophy; E11.42 Type 2 diabetes mellitus with diabetic polyneuropathy; I73.9 Peripheral vascular disease, unspecified; M20.41 Other hammer toe(s) (acquired), right foot; M20.42 Other hammer toe(s) (acquired), left foot; M21.621 Bunionette of right foot; M21.622 Bunionette of left foot; Z79.4 Long term (current) use of insulin; Z79.84 Long term (current) use of oral hypoglycemic drugs | CPT/HCPCS: 11721; 73502; 99213 ==

== ENCOUNTER → 2024-10-17 10:43 | Outpatient (BNVA) | payer MEDICARE, SELFPAY | PROVIDERS: Visit Provider Podiatrist Foot & Ankle Surgery | DX: L60.8 Other nail disorders (principal); E11.42 Type 2 diabetes mellitus with diabetic polyneuropathy; I73.9 Peripheral vascular disease, unspecified; Z79.84 Long term (current) use of oral hypoglycemic drugs; Z79.4 Long term (current) use of insulin | CPT/HCPCS: 11750 ==

== ENCOUNTER 2024-10-19 06:30 | Outpatient (RCR) | payer MEDICARE, SELFPAY | END 2024-11-18 23:59 | disposition home or self-care (01) | LOC: APT 06:30 | PROVIDERS: PCP Internal Medicine; Visit Provider Nurse Practitioner | DX: Z98.890 Other specified postprocedural states (principal) | CPT/HCPCS: 97110; 97112; 97530 ==

== ENCOUNTER → 2024-11-06 10:14 | Outpatient (BNVA) | payer MEDICARE, SELFPAY | PROVIDERS: PCP Internal Medicine; Visit Provider Podiatrist Foot & Ankle Surgery | DX: L60.8 Other nail disorders (principal); E11.42 Type 2 diabetes mellitus with diabetic polyneuropathy; I73.9 Peripheral vascular disease, unspecified; Z98.890 Other specified postprocedural states; Z79.84 Long term (current) use of oral hypoglycemic drugs; Z79.4 Long term (current) use of insulin | CPT/HCPCS: 99213 ==

== ENCOUNTER 2024-11-19 06:00 | Outpatient (RCR) | payer MEDICARE, SELFPAY | END 2024-12-18 23:59 | disposition home or self-care (01) | LOC: APT 06:00 | PROVIDERS: PCP Internal Medicine; Visit Provider Nurse Practitioner | DX: Z98.890 Other specified postprocedural states (principal) | CPT/HCPCS: 99214 ==

== ENCOUNTER → 2024-11-25 08:43 | Outpatient (BNVA) | payer MEDICARE, SELFPAY | PROVIDERS: PCP Internal Medicine; Visit Provider Nurse Practitioner | DX: Z98.890 Other specified postprocedural states (principal); Z96.641 Presence of right artificial hip joint; M54.31 Sciatica, right side | CPT/HCPCS: 73502; 99213 ==

== ENCOUNTER → 2024-12-30 09:44 | Outpatient (BNVA) | payer MEDICARE, SELFPAY | PROVIDERS: PCP Internal Medicine; Visit Provider Podiatrist Foot & Ankle Surgery | DX: E11.42 Type 2 diabetes mellitus with diabetic polyneuropathy (principal); L60.8 Other nail disorders; I73.9 Peripheral vascular disease, unspecified; Z79.4 Long term (current) use of insulin; Z79.84 Long term (current) use of oral hypoglycemic drugs | CPT/HCPCS: 11721 ==

== ENCOUNTER → 2025-01-08 10:14 | Outpatient (BNVA) | payer MEDICARE, SELFPAY | PROVIDERS: PCP Internal Medicine; Visit Provider Nurse Practitioner Family | DX: S80.921A Unspecified superficial injury of right lower leg, initial encounter (principal); X58.XXXA Exposure to other specified factors, initial encounter; L57.8 Other skin changes due to chronic exposure to nonionizing radiation; L82.1 Other seborrheic keratosis; D22.61 Melanocytic nevi of right upper limb, including shoulder; Z85.820 Personal history of malignant melanoma of skin; Z08 Encounter for follow-up examination after completed treatment for malignant neoplasm; Z85.828 Personal history of other malignant neoplasm of skin | CPT/HCPCS: 11102; 17000; 17110; 99214 ==

== ENCOUNTER → 2025-03-03 07:40 | Outpatient (BNVA) | payer MEDICARE, SELFPAY | PROVIDERS: PCP Internal Medicine; Visit Provider Nurse Practitioner | DX: M54.50 Low back pain, unspecified (principal); G89.29 Other chronic pain; M54.10 Radiculopathy, site unspecified; Z96.641 Presence of right artificial hip joint; M54.31 Sciatica, right side | CPT/HCPCS: 99214 ==

== ENCOUNTER → 2025-03-13 08:44 | Outpatient (BNVA) | payer MEDICARE, SELFPAY | PROVIDERS: PCP Internal Medicine; Visit Provider Orthopaedic Surgery | DX: M54.50 Low back pain, unspecified (principal); G89.29 Other chronic pain; M54.31 Sciatica, right side; M54.9 Dorsalgia, unspecified | CPT/HCPCS: 72110; 99203 ==

== ENCOUNTER 2025-03-18 13:13 | Outpatient (CLI) | payer MEDICARE, SELFPAY ==
--- NOTE | 2025-03-18 13:45 | MR_ITS ---
WS: [id number] MRI LUMBAR SPINE NONCONTRAST HISTORY: RIGHT hip and leg pain after hip replacement. COMPARISON: Radiograph 03/13/2025 TECHNIQUE: Sagittal and axial multisequence imaging is submitted. Normal lumbar alignment with no compression fractures or marrow edema. Disc spaces and vertebral body heights are well-preserved. Conus terminates normally at L1-2 disc level. L1-L2: Normal. L2-L3: Mild annular disc bulging encroaching upon the ventral thecal sac. Mild ligamentum flavum and facet arthritis. Mild bilateral foraminal stenosis. L3-L4: Annular disc bulging with a central disc protrusion. Effacement of CSF. Ligamentum flavum and facet arthritis. Fluid in the facet joints. Disc disease extend into the foramina with effacement of fat. Moderate to severe central, bilateral subarticular recess and foraminal stenosis, LEFT greater than RIGHT. L4-L5: Marked annular disc bulging with ligamentum flavum and facet arthritis. Trefoil appearance of the thecal sac. Fluid in the facet joints. Effacement of fat in the foramina. Severe central, bilateral subarticular recess and foraminal stenosis, RIGHT greater than LEFT. There is significant contact on the traversing L5 nerve roots. L5-S1: Central disc protrusion contacts the S1 nerve roots. Moderate facet arthritis. Small amount of fluid in the facet joints. Mild RIGHT and moderate to severe LEFT foraminal stenosis. Bilateral cystic renal masses. RIGHT renal cyst measures 3.2 x 3.3 cm and was present on a prior CT from 09/13/2019. There is a cystic mass with fluid level medial LEFT kidney measuring 4.6 x 4.7 cm. This mass has increased in size since 2019. Probably a hemorrhagic cyst. MR/MR lumbar spine wo con* [id number] IMPRESSION: 1. L3-4: Central disc protrusion and facet joint arthropathy. Moderate to cm re central, bilateral subarticular recess and foraminal stenosis. 2. L4-5: Severe central, bilateral subarticular recess and foraminal stenosis, RIGHT greater than LEFT. 3. L5-S1: Moderate to severe LEFT foraminal stenosis due to disc osteophyte di sease and mild RIGHT foraminal stenosis. Central disc protrusion contacts the S 1 nerve roots. Moderate facet arthritis. 4. Bilateral cystic masses in each kidney. Fluid/fluid layer in the LEFT renal cyst, increased in size since 2019. LEFT complex cyst may be a hemorrhagic cys t. Consider evaluation by ultrasound.
== END 2025-03-18 13:14 | disposition home or self-care (01) ==
PROVIDERS: PCP Internal Medicine; Visit Provider Orthopaedic Surgery
DX: M54.31 Sciatica, right side (principal); M51.26 Other intervertebral disc displacement, lumbar region; M99.63 Osseous and subluxation stenosis of intervertebral foramina of lumbar region; M47.896 Other spondylosis, lumbar region; N28.1 Cyst of kidney, acquired
CPT/HCPCS: 72148

== ENCOUNTER → 2025-03-31 09:34 | Outpatient (BNVA) | payer MEDICARE, SELFPAY | PROVIDERS: PCP Internal Medicine; Visit Provider Podiatrist Foot & Ankle Surgery | DX: E11.42 Type 2 diabetes mellitus with diabetic polyneuropathy (principal); L60.8 Other nail disorders; E11.8 Type 2 diabetes mellitus with unspecified complications; I73.9 Peripheral vascular disease, unspecified; Z79.84 Long term (current) use of oral hypoglycemic drugs; Z79.4 Long term (current) use of insulin | CPT/HCPCS: 11721 ==

== ENCOUNTER → 2025-04-03 14:24 | Outpatient (BNVA) | payer MEDICARE, SELFPAY | PROVIDERS: PCP Internal Medicine; Visit Provider Orthopaedic Surgery | DX: M48.061 Spinal stenosis, lumbar region without neurogenic claudication (principal); Z09 Encounter for follow-up examination after completed treatment for conditions other than malignant neoplasm | CPT/HCPCS: 99213 ==

== ENCOUNTER → 2025-04-24 10:24 | Outpatient (BNVA) | payer MEDICARE, SELFPAY | PROVIDERS: PCP Internal Medicine; Visit Provider Orthopaedic Surgery | DX: M25.551 Pain in right hip (principal); Z96.641 Presence of right artificial hip joint | CPT/HCPCS: 99213 ==

== ENCOUNTER → 2025-06-10 10:05 | Outpatient (BNVA) | payer MEDICARE, SELFPAY | PROVIDERS: PCP Internal Medicine; Visit Provider Nurse Practitioner Family | DX: L81.4 Other melanin hyperpigmentation (principal); L57.8 Other skin changes due to chronic exposure to nonionizing radiation; D22.5 Melanocytic nevi of trunk; L82.1 Other seborrheic keratosis; Z85.820 Personal history of malignant melanoma of skin; Z08 Encounter for follow-up examination after completed treatment for malignant neoplasm; Z85.828 Personal history of other malignant neoplasm of skin; S50.12XA Contusion of left forearm, initial encounter; L57.0 Actinic keratosis; X58.XXXA Exposure to other specified factors, initial encounter | CPT/HCPCS: 11104; 17000; 99213 ==

== ENCOUNTER → 2025-06-17 08:29 | Outpatient (BNVA) | payer MEDICARE, SELFPAY | PROVIDERS: PCP Internal Medicine; Visit Provider Podiatrist Foot & Ankle Surgery | DX: E11.42 Type 2 diabetes mellitus with diabetic polyneuropathy (principal); L60.8 Other nail disorders; E11.8 Type 2 diabetes mellitus with unspecified complications; I73.9 Peripheral vascular disease, unspecified; Z79.4 Long term (current) use of insulin; Z79.84 Long term (current) use of oral hypoglycemic drugs | CPT/HCPCS: 11721 ==